=== PATIENT | male | born 1970 | race Caucasian/White ===

== ENCOUNTER → 2024-04-05 | Outpatient (CLI) | payer OTHER ==
[~2024-04-05] MED LIST: CEPH500C PO
[2024-04-05 09:43] LABS: Urine Bacteria None Seen /hpf (None Seen)
[2024-04-05 10:37] LABS: Basophils # (auto) 0.2 10 ^3/uL (0-0.2); Basophils % (auto) 1.2 % (0.0-2.0); Eosinophils # (auto) 0.3 10 ^3/uL (0-0.8); Eosinophils % (auto) 2.3 % (0.0-7.0); Hemoglobin 13.6 g/dL (13.5-17.5); Lymphocytes % (auto) 20.8 % (10.0-50.0); Mean Corpuscular Hemoglobin 33.2 pg (28.0-32.0); Mean Corpuscular Volume 97.5 fL (80.0-100.0); Monocytes # (auto) 0.5 10 ^3/uL (0-1.3); Monocytes % (auto) 3.7 % (0.0-12.0); Neutrophils # (auto) 10.4 10 ^3/uL (1.6-8.6); Platelet Count (auto) 528 10^3/uL (140-450); Red Cell Distribution Width 16.7 % (11.8-14.3); White Blood Cell 14.5 10^3/uL (4.4-10.8)
[2024-04-05 10:43] LABS: Urine Blood Negative /uL (Negative); Urine Clarity Clear (Clear); Urine Color Yellow (Yellow); Urine Protein, UAD Negative (Negative); Urine Specific Gravity 1.014 (1.001-1.035); Urine Urobilinogen Normal (Negative); Urine WBC 4 /hpf (0 - 3)
[2024-04-05 10:57] LABS: Alanine Aminotransferase 18 U/L (7-40); Albumin 4.4 g/dL (3.2-4.8); Alkaline Phosphatase 152 U/L (46-116); Anion Gap 5 (5-15); Aspartate Aminotransferase 13 U/L (13-40); BUN/Creatinine Ratio 16.8 (10.0-20.0); Bilirubin, Total 0.3 mg/dL (0.2-1.0); Blood Urea Nitrogen 17 mg/dL (9-23); Calcium 10.1 mg/dL (8.7-10.4); Carbon Dioxide 25 mmol/L (20-31); Chloride 108 mmol/L (98-107); Cholesterol 168 mg/dL (< 200); Glucose 93 mg/dL (74-106); HDL Cholesterol 37 mg/dL (40-59); LDL Cholesterol 117 mg/dL (< 100); Magnesium 2.1 mg/dL (1.6-2.6); Potassium 4.6 mmol/L (3.5-5.1); Sodium 138 mmol/L (136-145); Total Protein 7.7 g/dL (5.7-8.2); Triglycerides 153 mg/dL (< 150)
[2024-04-05 11:21] LABS: Folate (Folic Acid) > 48.00 ng/mL (>5.38)
== END | disposition home or self-care (01) ==
LOC: LAB 09:19
PROVIDERS: ATTEND Internal Medicine
DX: E55.9 Vitamin D deficiency, unspecified (principal); R73.03 Prediabetes; M86.9 Osteomyelitis, unspecified
CPT/HCPCS: 36415; 80053; 80061; 81001; 82306; 82607; 82746; 83036; 83735; 84443; 84550; 85025; 87086

== ENCOUNTER → 2024-08-05 | Outpatient (CLI) | payer OTHER ==
[2024-08-05 10:03] LABS: Basophils # (auto) 0.1 10 ^3/uL (0-0.2); Basophils % (auto) 0.9 % (0.0-2.0); Eosinophils # (auto) 0.2 10 ^3/uL (0-0.8); Eosinophils % (auto) 1.1 % (0.0-7.0); Hematocrit 49.6 % (41.0-53.0); Hemoglobin 16.7 g/dL (13.5-17.5); Lymphocytes # (auto) 2.5 10 ^3/uL (0.4-5.4); Lymphocytes % (auto) 15.8 % (10.0-50.0); Mean Corpuscular Hemoglobin 33.2 pg (28.0-32.0); Mean Corpuscular Hgb Conc. 33.8 g/dL (32.0-36.0); Mean Corpuscular Volume 98.2 fL (80.0-100.0); Monocytes # (auto) 0.8 10 ^3/uL (0-1.3); Monocytes % (auto) 4.8 % (0.0-12.0); Neutrophils # (auto) 12.5 10 ^3/uL (1.6-8.6); Neutrophils % (auto) 77.4 % (37.0-80.0); Nucleated Red Blood Cells % 0.1 %; Platelet Count (auto) 448 10^3/uL (140-450); Red Blood Cells 5.05 10^6/uL (4.5-5.90); Red Cell Distribution Width 14.9 % (11.8-14.3); White Blood Cell 16.1 10^3/uL (4.4-10.8)
[2024-08-05 10:44] LABS: Anion Gap 4 (5-15); Aspartate Aminotransferase 25 U/L (13-40); BUN/Creatinine Ratio 20.5 (10.0-20.0); Carbon Dioxide 24 mmol/L (20-31); Cholesterol 138 mg/dL (< 200); Glucose 105 mg/dL (74-106); Magnesium 2.5 mg/dL (1.6-2.6); Sodium 137 mmol/L (136-145); Triglycerides 108 mg/dL (< 150)
[2024-08-05 10:45] LABS: Alanine Aminotransferase 42 U/L (7-40); Alkaline Phosphatase 167 U/L (46-116); Bilirubin, Total 0.2 mg/dL (0.2-1.0); Blood Urea Nitrogen 24 mg/dL (9-23); Calcium 11.3 mg/dL (8.7-10.4); Chloride 109 mmol/L (98-107); LDL Cholesterol 84 mg/dL (< 100); Potassium 5.5 mmol/L (3.5-5.1); Total Protein 8.9 g/dL (5.7-8.2)
[2024-08-05 10:52] LABS: Albumin 5.4 g/dL (3.2-4.8); HDL Cholesterol 39 mg/dL (40-59)
[2024-08-05 10:56] LABS: Erythrocyte Sedimentation Rate 50 mm/hr (0-20)
[2024-08-05 11:47] LABS: Uric Acid 7.8 mg/dL (3.7-9.2)
[2024-08-05 11:49] LABS: T3 Total 0.97 ng/mL (0.60-1.81)
[2024-08-05 11:50] LABS: Free T3 2.65 pg/mL (2.3-4.2)
[2024-08-05 11:51] LABS: Free T4 (Free Thyroxine) 1.37 ng/dL (0.89-1.76)
[2024-08-05 12:16] LABS: Folate (Folic Acid) > 48.00 ng/mL (>5.38)
[2024-08-05 16:08] LABS: CRP High Sensitivity 4.62 mg/dL (<1.0)
== END | disposition home or self-care (01) ==
LOC: LAB 09:20
PROVIDERS: ATTEND Internal Medicine
DX: E61.2 Magnesium deficiency (principal); E55.9 Vitamin D deficiency, unspecified; D51.9 Vitamin B12 deficiency anemia, unspecified; E78.49 Other hyperlipidemia; E79.0 Hyperuricemia without signs of inflammatory arthritis and tophaceous disease; R94.6 Abnormal results of thyroid function studies; R82.998 Other abnormal findings in urine; R73.09 Other abnormal glucose; R68.89 Other general symptoms and signs; R82.90 Unspecified abnormal findings in urine; Z79.899 Other long term (current) drug therapy
CPT/HCPCS: 36415; 80053; 80061; 82306; 82607; 82746; 83036; 83540; 83735; 84153; 84403; 84439; 84443; 84480; 84481; 84550; 85025; 85652; 86141

== ENCOUNTER → 2024-08-22 | Outpatient (CLI) | payer OTHER ==
[2024-08-22 08:24] LABS: Basophils # (auto) 0 10 ^3/uL (0-0.2); Basophils % (auto) 0.2 % (0.0-2.0); Eosinophils # (auto) 0.3 10 ^3/uL (0-0.8); Eosinophils % (auto) 2.1 % (0.0-7.0); Hematocrit 44.1 % (41.0-53.0); Hemoglobin 14.5 g/dL (13.5-17.5); Lymphocytes # (auto) 2.7 10 ^3/uL (0.4-5.4); Lymphocytes % (auto) 20.7 % (10.0-50.0); Mean Corpuscular Hemoglobin 32.1 pg (28.0-32.0); Mean Corpuscular Hgb Conc. 32.8 g/dL (32.0-36.0); Mean Corpuscular Volume 98.1 fL (80.0-100.0); Monocytes # (auto) 0.4 10 ^3/uL (0-1.3); Monocytes % (auto) 2.7 % (0.0-12.0); Neutrophils # (auto) 9.9 10 ^3/uL (1.6-8.6); Neutrophils % (auto) 74.3 % (37.0-80.0); Nucleated Red Blood Cells % 0.1 %; Platelet Count (auto) 523 10^3/uL (140-450); Red Cell Distribution Width 14.5 % (11.8-14.3); White Blood Cell 13.3 10^3/uL (4.4-10.8)
[2024-08-22 08:39] LABS: Anion Gap 9 (5-15); Carbon Dioxide 24 mmol/L (20-31); Sodium 141 mmol/L (136-145)
[2024-08-22 08:40] LABS: Calcium 9.9 mg/dL (8.7-10.4)
[2024-08-22 08:45] LABS: BUN/Creatinine Ratio 19.5 (10.0-20.0); Blood Urea Nitrogen 17 mg/dL (9-23)
[2024-08-22 08:46] LABS: CRP High Sensitivity 0.72 mg/dL (<1.0)
[2024-08-22 08:54] LABS: Chloride 108 mmol/L (98-107); Glucose 107 mg/dL (74-106)
[2024-08-22 08:58] LABS: Erythrocyte Sedimentation Rate 43 mm/hr (0-20)
== END | disposition home or self-care (01) ==
LOC: LAB 07:07
PROVIDERS: ATTEND Internal Medicine
DX: Z01.89 Encounter for other specified special examinations (principal); A49.9 Bacterial infection, unspecified; D45 Polycythemia vera; E78.00 Pure hypercholesterolemia, unspecified; R79.82 Elevated C-reactive protein (CRP); R70.0 Elevated erythrocyte sedimentation rate
CPT/HCPCS: 36415; 80048; 85025; 85652; 86141; 87040

== ENCOUNTER 2024-12-26 08:07 | Outpatient (CLI) | payer OTHER ==
[2024-12-26 08:30] LABS: Hematocrit 45.1 % (41.0-53.0); Hemoglobin 15.0 g/dL (13.5-17.5); Mean Corpuscular Hemoglobin 32.7 pg (28.0-32.0); Mean Corpuscular Volume 98.4 fL (80.0-100.0); Nucleated Red Blood Cells % 0.0 %
[2024-12-26 08:55] LABS: Urine Protein, UAD Negative (Negative)
[2024-12-26 08:56] LABS: Alanine Aminotransferase 21 U/L (7-40); Albumin 4.7 g/dL (3.2-4.8); Alkaline Phosphatase 132 U/L (46-116); Anion Gap 6 (5-15); BUN/Creatinine Ratio 18.1 (10.0-20.0); Bilirubin, Total < 0.2 mg/dL (0.2-1.0); Blood Urea Nitrogen 19 mg/dL (9-23); Calcium 10.5 mg/dL (8.7-10.4); Carbon Dioxide 24 mmol/L (20-31); Chloride 112 mmol/L (98-107); Cholesterol 107 mg/dL (< 200); Glucose 100 mg/dL (74-106); HDL Cholesterol 30 mg/dL (40-59); Potassium 4.7 mmol/L (3.5-5.1); Sodium 142 mmol/L (136-145); Total Protein 7.8 g/dL (5.7-8.2); Triglycerides 154 mg/dL (< 150)
[2024-12-26 11:14] LABS: Uric Acid 6.2 mg/dL (3.7-9.2)
== END 2024-12-26 17:00 | disposition home or self-care (01) ==
LOC: LAB 08:07
PROVIDERS: ATTEND Internal Medicine
DX: E78.49 Other hyperlipidemia (principal); R73.09 Other abnormal glucose; R68.89 Other general symptoms and signs; E61.2 Magnesium deficiency; R94.6 Abnormal results of thyroid function studies; E79.0 Hyperuricemia without signs of inflammatory arthritis and tophaceous disease; R82.998 Other abnormal findings in urine; E55.9 Vitamin D deficiency, unspecified; R82.90 Unspecified abnormal findings in urine; R82.79 Other abnormal findings on microbiological examination of urine; D51.9 Vitamin B12 deficiency anemia, unspecified
CPT/HCPCS: 36415; 80053; 80061; 81003; 82306; 82607; 83036; 84443; 84550; 85025; 87086

== ENCOUNTER 2025-02-13 01:00 | Inpatient (IN) | payer OTHER ==
[~2025-02-13] VITALS: Ht 177.8 cm; Wt 68.2 kg
[2025-02-13] VITALS (118 sets, daily range): BP systolic 39–141; BP diastolic 18–106; PULSE 76–114; RESP 12–31; TEMP 94.1–99.6; O2SAT 0–100
--- NOTE | 2025-02-13 01:27 | ED.PDOC ---
CPR-HPI HPI Comments HPI: 54 year old male presents to the emergency department via EMS with a chief complaint of cardiac arrest. Per EMS, initial 911 call was due to patient experiencing rectal bleeding and diarrhea for the past 2 days. Upon EMS arrival, patient was awake, on the ground, altered, unable to answer questions, responding to stimuli. In route to ED, patient was bradycardic, lost pulses, CPR began. He has a IO on RLE, 2 rounds of epinephrine was given prior to ED arrival. Last seen normal was about 1 hour prior to 911 call. Upon ED arrival, it was noted EMT showing very poor CPR and no bag valve mask ventilation happening upon ED arrival, Oral adjunct in place. CPR continued under our care, patient was intubated with 7.5 RTT tube @ 26 cm, TXA and 2 units PRBC were ordered immediately, given to patient. There was ROSC at 01:00. Initial Vitals BP: HR: RR: O2: Temp: 97.8 F Past Medical History: per EMS denies Past Surgical History: per EMS denies Social History: Denies ETOH, smoking, and drug use. Medications: Gabapentin, Percocet Allergies: Sulfa, Vancomycin, Cipro Patient was evaluated immediately upon arrival. No corneal reflex. Pupils were nonreactive and dilated. No gag reflex during the intubation. HPI: Poor Historian. Past Medical History: Past Surgical History: REVIEW OF SYSTEMS: Unable to obtain given the patient altered level of consciousness cardiac arrest CPR in progress. PHYSICAL EXAM: General: -unresponsive. Head: normocephalic, atraumatic. Neck: supple, trachea is midline, no swelling. Throat: Dry oral mucosa. No gag reflex during intubation. Eyes:, no erythema, no purulent discharge, no proptosis, no icterus. Heart: Asystole Lungs: CPR in progress. Abdomen: non tender to palpation, non distended, soft, no guarding, no rebound, + bowel sounds. Neuro: GCS 3 Skin: no petechia, no purpura, no cyanosis, noticeably-pale, slightly jaundice. Lower extremities: --no - Pitting edema no deformity, no focal swelling, no calf TTP. 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 Noted blood in the rectum when we checked a rectal temperature probe. Face: no apparent facial droop. ED COURSE: DISCLAIMER: This medical document was created using an electronic medical record system with voice recognition software and computerized dictation system. Although this document has been carefully reviewed, there might still be some phonetic and typographical errors. Occasional wrong-word or "sound-alike" substitutions may have occurred due to the inherent limitations of voice recognition software. These areas are purely typographical due to imperfections of the software programs and do not reflect any compromise in the patient's medical care. Please read the chart carefully and recognize, using context, where these substitutions have occurred. Chief Complaint: CPR Time Seen by MD: 01:00 Primary Care Provider: KAMALA Arboleda Notes: Medications, Allergies Allergies: Coded Allergies: Ciprofloxacin (Verified Allergy, Intermediate, 04/24/10) Vancomycin (Verified Allergy, Intermediate, 04/24/10) Uncoded Allergies: SULFA (Allergy, Unknown, 10/25/14) Home Meds Reported Medications Cephalexin Monohydrate (Cephalexin) 500 Mg Cap, 500 MG PO BID, #60 10/25/14 Information Source: Emergency Med Personnel Mode of Arrival: EMS Timing: Minutes Onset: At rest Available Hx: GI Bleeding Inital rhythm: Bradycardia Treatment: CPR, Epinephrine Response: No response Associated signs and symptoms: GI Bleeding Past Medical History PAST MEDICAL HISTORY: Denies Surgical History: Denies all surgeries Family History Family History: Unknown Social History Smoker: Non-Smoker Alcohol: Denies ETOH Use Drugs: Denies Drug Use Lives In: Home Was a procedure done? 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 Indication: Inability to obtain IV Room prepared for procedure: Yes Medical Oncology Physician performed hand hygien: Yes Maximal sterile barrier precau: Mask/Eye shield, Sterile gown, Cap, Sterlie gloves, Large sterlie drape Skin Preparation: Chlorhexidine gluconate, Providine iodine, Alcohol Skin preparation completely dr: Yes Insertion site: Right, Femoral Central line catheter type: [id number]-qal dialysis Number of lumens: 3 Antiseptic ointment applied to: Yes Post Assessment: Chest X-Ray, Proper placement Informed consent obtained: Yes Risks/benefits/alt described: Yes Intubation Indication: Respiratory Insufficiency Prep: Preoxygenation Intubation Approach: Orotracheal (7.5) Intubation size: cm (26) X-Ray, Labs, Meds, VS Vital Signs Date Time Temp Pulse Resp B/P (MAP) Pulse Ox O2 Delivery O2 Flow Rate FiO2 02/13/25 01:45 80 12 64/ 100 100 02/13/25 01:45 80 12 64/ (42) 100 100 02/13/25 01:14 116 02/13/25 01:10 97.8 0 0 0/0 0 97.8 Lab Test 02/13/25 01:10 Range/Units White Blood Count 19.0 H 4.4-10.8 10^3/uL Red Blood Count 1.21 L 4.5-5.90 10^6/uL Hemoglobin 3.9 *L 13.5-17.5 g/dL Hematocrit 15.5 L 41.0-53.0 % Mean Corpuscular Volume 127.9 H 80.0-100.0 fL Mean Corpuscular Hemoglobin 32.4 H 28.0-32.0 pg Mean Corpuscular Hemoglobin Concent 25.3 L 32.0-36.0 g/dL Red Cell Distribution Width 15.7 H 11.8-14.3 % Platelet Count 315 140-450 10^3/uL Mean Platelet Volume 8.9 6.9-10.8 fL Neutrophils (%) (Auto) 37.0-80.0 % Lymphocytes (%) (Auto) 10.0-50.0 % Monocytes (%) (Auto) 0.0-12.0 % Basophils (%) (Auto) 0.0-2.0 % Neutrophils # (Auto) 1.6-8.6 10 ^3/uL Lymphocytes # (Auto) 0.4-5.4 10 ^3/uL Monocytes # (Auto) 0-1.3 10 ^3/uL Differential Total Cells Counted 100.0 100 Neutrophils % (Manual) 28 L 37.0-80.0 Band Neutrophils % (Manual) 2 Lymphocytes % (Manual) 67 H 10.0-50.0 Monocytes % (Manual) 2 0-12 Eosinophils % (Manual) 0 0-7 Basophils % (Manual) 0 0.0-2.0 Metamyelocytes % (manual) 0 Myelocytes % (Manual) 1 Promyelocytes % (Manual) 0 Blast Cells % (Manual) 0 Nucleated Red Blood Cells 1.0 % Reactive Lymphocytes 0 Platelet Estimate Adequate Macrocytosis Marked Prothrombin Time 12.6 H 9.3-11.8 sec Prothrombin Time INR 1.21 H 0.9-1.15 Activated Partial Thromboplast Time 109.0 *H 24.5-34.5 SEC Sodium Level 145 136-145 mmol/L Potassium Level 7.0 *H 3.5-5.1 mmol/L Chloride Level 115 H 98-107 mmol/L Carbon Dioxide Level < 10 *L 20-31 mmol/L Anion Gap 20.49420 H 5-15 Blood Urea Nitrogen 36 H 9-23 mg/dL Creatinine 1.46 H 0.700-1.30 mg/dL Glomerular Filtration Rate Calc 57 >90 mL/min BUN/Creatinine Ratio 24.7 H 10.0-20.0 Serum Glucose 356 H 74-106 mg/dL Lactic Acid Level 22.8 *H 0.4-2.0 mmol/L Calcium Level 9.5 8.7-10.4 mg/dL Total Bilirubin < 0.2 L 0.2-1.0 mg/dL Aspartate Amino Transferase (AST) 488 H 13-40 U/L Alanine Aminotransferase (ALT) 360 H 7-40 U/L Alkaline Phosphatase 88 46-116 U/L Troponin I High Sensitivity 3 L </=54 ng/L Total Protein 4.6 L 5.7-8.2 g/dL Albumin 2.6 L 3.2-4.8 g/dL Current Medications Medications (Trade) Dose Ordered Sig/Noah Route Start Time Stop Time Status Last Admin Sodium Chloride 1,000 ml @ 1,000 mls/hr Q1H ONCE IV 02/13/25 01:45 02/13/25 02:44 DC 02/13/25 03:20 Metronidazole 100 ml @ 100 mls/hr ONCE ONCE IV 02/13/25 01:45 02/13/25 02:44 DC 02/13/25 03:30 Pantoprazole Sodium (Protonix) 80 mg ONCE ONCE IV 02/13/25 01:45 02/13/25 01:46 DC 02/13/25 03:30 Sodium Chloride 1,000 ml @ 120 mls/hr Q8H20M IV 02/13/25 02:15 02/13/25 03:[address] [place] - [address] Ph: [phone] DIAGNOSTIC IMAGING Diagnostic Imaging Report : [id number] Signed 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 Lungs: No focal consolidation. Mild pulmonary vascular congestion. Question interstitial edema. Pleura: No effusion. No pneumothorax. Cardiomediastinal contours: Unremarkable Bones: No acute osseous abnormality. IMPRESSION: 1. Endotracheal and enteric tubes are in appropriate position. 2. Mild pulmonary vascular congestion and interstitial edema. 3. No focal consolidations. ATED BY: KAYA HWANG MD DICTATED DATE/TIME: 02/13/25240 SIGNED BY: KAYA HWANG MD SIGNED DATE/TIME: 02/13/25240 CC: Time of 1ST Reevaluation: 01:30 Reevaluation 1ST: Unchanged Patient Education/Counseling: Other Family Education/Counseling: No Family Present Departure 1 Departure Time of Disposition: 02:18 Impression: Primary Impression: Cardiac arrest Additional Impressions: Rectal bleed Severe anemia Hyperkalemia Elevated LFTs Hypoalbuminemia Disposition: ADMITTED INPATIENT Admit to: ICU Condition: Critical Critical Care Note Critical Care Time?: No I personally scribed for SHANELL STEEN DO ([email or web address]) on 02/13/25 at 01:27. Electronically submitted by Pratibha Hoffman ([email or web address]). I personally scribed for SHANELL STEEN DO ([email or web address]) on 02/13/25 at 01:38. Electronically submitted by Pratibha Hoffman ([email or web address]). I personally scribed for [facility] DO ([facility] on 02/13/25 at 01:40. Electronically submitted by Pratibha Hoffman ([email or web address]). I personally scribed for SHANELL STEEN DO ([facility]) on 02/13/25 at 02:38. Electronically submitted by Pratibha Hoffman ([email or web address]). I personally scribed for SHANELL STEEN DO ([facility]) on 02/13/25 at 03:36. Electronically submitted by Pratibah Hoffman ([email or web address]). SHANELL STEEN DO Feb 13, 2025 01:27
[2025-02-13 01:49] LABS: Hematocrit 15.5 % (41.0-53.0); Mean Corpuscular Hemoglobin 32.4 pg (28.0-32.0); Mean Corpuscular Volume 127.9 fL (80.0-100.0)
[2025-02-13 01:53] LABS: Hemoglobin 3.9 g/dL (13.5-17.5)
[2025-02-13 01:55] LABS: Alkaline Phosphatase 88 U/L (46-116); Anion Gap 20.00001 (5-15); BUN/Creatinine Ratio 24.7 (10.0-20.0); Calcium 9.5 mg/dL (8.7-10.4)
[2025-02-13 01:56] LABS: Alanine Aminotransferase 360 U/L (7-40); Albumin 2.6 g/dL (3.2-4.8); Bilirubin, Total < 0.2 mg/dL (0.2-1.0); Blood Urea Nitrogen 36 mg/dL (9-23); Chloride 115 mmol/L (98-107); Glucose 356 mg/dL (74-106); Sodium 145 mmol/L (136-145); Total Protein 4.6 g/dL (5.7-8.2)
[2025-02-13] MEDS: NOREPINEPHRINE 8 MG/250ML KIT 250 ML IV SCH (02:00)
[2025-02-13] MEDS: MIDAZOLAM DRIP 50 mg/50mL 50 ML IV SCH (02:00)
[2025-02-13] MEDS ORDERED: MORPHINE SULFATE INJ 2 MG/ml SYRG IV PRN (02:15)
[2025-02-13] MEDS ORDERED: ONDANSETRON HCL 4 MG/2 ML VIAL IV PRN (02:15)
[2025-02-13] MEDS ORDERED: NITROGLYCERIN 0.4 MG SL TAB SL PRN (02:15)
[2025-02-13] MEDS ORDERED: DEXTROSE (50%) 50ML SYRG IV PRN (02:15)
[2025-02-13 02:20] LABS: Carbon Dioxide < 10 mmol/L (20-31); Potassium 7.0 mmol/L (3.5-5.1)
--- NOTE | 2025-02-13 02:20 | RESUS ---
CODE BLUE ASSESSSMENT History of Events History of Events: 54 year old male presents to the emergency department via EMS with a chief complaint of cardiac arrest. Per EMS, initial 911 call was due to patient experiencing rectal bleeding and diarrhea for the past 2 days. Upon EMS arrival, patient was awake, on the ground, altered, unable to answer questions, responding to stimuli. In route to ED, patient was bradycardic, lost pulses, CPR began. He has a IO on RLE, 2 rounds of epinephrine was given prior to ED arrival. Last seen normal was about 1 hour prior to 911 call. Initial Information Date: Feb 13, 2025 Time: 01:00 Location of Arrest: In Field CPR started by whom: EMS Type of arrest: Cardiac, Respiratory, Adult Spontaneous Respirations: No Monitoring: Pulse Oximetry, Telemetry Crash Cart Opened and Supplies: Yes Airway Ventilation Breathing at Onset: Assisted Oxygen Delivery Method: Ambu-Bag Artificial Ventilation: Bag/Endo tube Intubation Size: 7.5 cuffed Intubated by: Dr. Lindo Intubated orally: Yes Tube secured at: 26 (@lip) CO2 indicator used: Yes Confirmation: Auscultation Suctioning (Oral/Tracheal): Yes Circulation Circulation #1: Time: 01:00 Circulation Comment: Arrival through ER doors w/ poor quality CPR Circulation #2: Time: 01:01 Pulse Rate (adult): 0 Blood Pressure Systolic: 0 Blood Pressure Diastolic: 0 Circulation Comment: Pt transfered to [facility] CPR continued Circulation #3: Time: 01:03 Pulse Rate (adult): 0 Blood Pressure Systolic: 0 Blood Pressure Diastolic: 0 Temperature (Fahrenheit): 97.8 Circulation Comment: Asystole Circulation #4: Time: 01:05 Pulse Rate (adult): 0 Blood Pressure Systolic: 0 Blood Pressure Diastolic: 0 Circulation Comment: Asystole Circulation #5: Time: 01:07 Pulse Rate (adult): 0 Blood Pressure Systolic: 0 Blood Pressure Diastolic: 0 Circulation Comment: Pulse check Circulation #6: Time: 01:08 Pulse Rate (adult): 187 Blood Pressure Systolic: 103 Blood Pressure Diastolic: 47 Circulation Comment: ROSC Procedure - IV Procedure - IV : IV Side: Right IV Location: Hand IV Catheter Type: Peripheral IV IV Gauge: 20 IV Line Care: Saline Flush Procedure - Intraosseous Site of Intraosseous: Tibia jassi-medial Intraosseous inserted by: EMS Right IO Medications & Response Medications and Responses #1: Medication Time: 01:02 ADULT Medications Given ADULT: Epinephrine 1 mg Route of Administration: IO Medication Comment: Also started 1L bolus open Heart Rate: 0 EKG Rhythm: Asystole Blood Pressure Systolic: 0 Blood Pressure Diastolic: 0 Medications and Responses #2: Medication Time: 01:05 ADULT Medications Given ADULT: Epinephrine 1 mg Route of Administration: IO Heart Rate: 0 EKG Rhythm: Asystole Blood Pressure Systolic: 0 Blood Pressure Diastolic: 0 EKG Rhythm: Asystole Medications and Responses #3: Medication Time: 01:07 Route of Administration: IV Medication Comment: Tranexamic acid 1000mg via IV EKG Rhythm: Asystole Medications and Responses #4: Medication Time: 01:08 ADULT Medications Given ADULT: Epinephrine 1 mg, Sodium Bacarbinate 50 meq Medication Comment: Given prior to ROSC Procedure - Central Venous Cat Central venous catheter site: Rt Femoral Comment: Dr. Lindo inserted sp ROSC Right Femoral line Nurses Notes [place] Coma Scale Eye Opening: None (1) Daniel Coma Scale Verbal: None (1) Daniel Coma Scale Motor: None (1) Pupil Reaction: Non Reactive Bedside Blood Glucose: 168 EKG Rhythm: Sinus Tachycardia Nurses Notes - Comment: Levo started at 10 mcg after code, blood presure systolic in 60's 2 units of blood ordered during code. Started after ROSC. Time Code Ended Post Arrest Status: Unconscious, Ventilated Outcome of code: Successful Code Team Present: Juana Arroyo RT, Gabriel HURTADO mold filler and drainer, Yolie RN, Fernando RN, Natalie EMT, Stoney RNS Post Resuscitation Neurologica Pupil Size: 5 ROSC Time of ROSC: 01:08 Pt Meets Criteria for Therapeu: No Therapeutic Hyperthermia Start: No JAYJAY MUHAMMAD Feb 13, 2025 02:20
[2025-02-13 02:22] LABS: INR 1.21 (0.9-1.15); Prothrombin Time 12.6 sec (9.3-11.8)
[2025-02-13 02:23] LABS: Lactic Acid w/Reflex 22.8 mmol/L (0.4-2.0)
--- NOTE | 2025-02-13 02:28 | DVHHP2 ---
Admitting Diagnosis: Cardiac arrest History of Present Illness 54-year-old male came in full cardiac arrest from home. According to the emergency room patient was not getting good ventilation in the ambulance and patient was intubated in the emergency room. Patient had estimated downtime of approximately 1 hour. Patient had minimal medical history. According to family he had a remote history of EtOH in the past but has not been drinking for many years. 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 Patient presented status postcardiac arrest. Patient was intubated in the emergency room. Patient was thought to be sepsis with septic shock. Patient also had acute multi organ failure. Patient CT imaging shows cerebral edema. Patient's pupils were blown and not reactive to light. Patient will be admitted for further workup with all specialists to help with multi organ failure and cardiac and respiratory failure. Allergies: Coded Allergies: Ciprofloxacin (Verified Allergy, Intermediate, 04/24/10) Vancomycin (Verified Allergy, Intermediate, 04/24/10) Uncoded Allergies: SULFA (Allergy, Unknown, 10/25/14) Home Meds Reported Medications Cephalexin Monohydrate (Cephalexin) 500 Mg Cap, 500 MG PO BID, #60 10/25/14 Current Medications Current Medications Medications (Trade) Dose Ordered Sig/Noah Route PRN Reason Start Time Stop Time Status Last Admin Midazolam HCl 50 ml @ 1 mls/hr Q24H IV 02/13/25 02:30 02/13/25 02:00 Norepinephrine Bitartrate 250 ml @ 3.75 mls/hr Q24H IV 02/13/25 02:30 02/13/25 18:58 Sodium Chloride 1,000 ml @ 120 mls/hr Q8H20M IV 02/13/25 02:15 02/13/25 18:25 Ondansetron HCl (Zofran) 4 mg Q4HP PRN IV NAUSEA / VOMITING 02/13/25 02:15 Nitroglycerin (Ntrostat Sublingual) 0.4 mg Q5MINP PRN SL FOR CHEST PAIN 02/13/25 02:15 Morphine Sulfate 2 mg Q30M PRN IV FOR CHEST PAIN 02/13/25 02:15 Diagnostic Test (Pha) (Accu-Chek Comfort Curve T) 1 strip IQ4HR 02/13/25 04:00 02/13/25 20:00 Insulin Human Regular (InsuLIN R) IQ4HR SC 02/13/25 04:00 02/13/25 20:25 Dextrose 50 ml UD PRN IV Blood Sugar LESS THAN 60 02/13/25 02:15 Pantoprazole Sodium (Protonix) 40 mg BID IV 02/13/25 10:00 02/13/25 10:51 DC 02/13/25 10:15 Phenylephrine HCl 250 ml @ 30 mls/hr Q8H20M IV 02/13/25 05:15 02/13/25 20:25 Vasopressin 20 units/Sodium Chloride 100 ml @ 9 mls/hr Q11H7M IV 02/13/25 05:15 02/13/25 20:03 DC 02/13/25 15:10 Piperacillin Sod/ Tazobactam Sod 100 ml @ 25 mls/hr Q8HR IV 02/13/25 06:00 02/13/25 14:09 Doxycycline Hyclate 100 ml @ 50 mls/hr Q12H IV 02/13/25 05:15 02/13/25 17:08 Albumin Human 50 ml @ 100 mls/hr Q8H IV 02/13/25 05:15 02/13/25 21:44 02/13/25 12:49 Sodium Chloride 1,000 ml @ 100 mls/hr Q10H IV 02/13/25 05:15 02/13/25 05:15 Epinephrine HCl 250 ml @ 7.5 mls/hr Q24H IV 02/13/25 07:15 02/13/25 14:59 Dopamine HCl/ Dextrose 250 ml @ 12.788 mls/ hr [id number] IV 02/13/25 09:30 02/13/25 19:22 Sodium Bicarbonate 150 ml/Dextrose 1,150 ml @ 100 mls/hr [id number] IV 02/13/25 10:45 02/13/25 10:51 DC Pantoprazole Sodium 50 ml @ 10 mls/hr Q5H IV 02/13/25 10:45 02/13/25 20:51 Octreotide Acetate 500 mcg/ Sodium Chloride 100 ml @ 10 mls/hr Q10H IV 02/13/25 10:45 02/13/25 20:51 Sodium Bicarbonate 150 ml/Dextrose 1,150 ml @ 150 mls/hr Q7H40M IV 02/13/25 10:45 02/13/25 20:30 Vasopressin 40 units/Dextrose 200 ml @ 60 mls/hr Q3H20M IV 02/13/25 20:00 02/13/25 20:04 DC Vasopressin 100 units/Dextrose 500 ml @ 60 mls/hr Q8H20M IV 02/13/25 20:15 02/13/25 20:15 Calcium Gluconate/ Sodium Chloride 50 ml @ 100 mls/hr Q30M IV 02/13/25 21:00 02/13/25 21:59 02/13/25 21:06 Review of Systems intubated Vital Signs Vital Signs Date Time Temp Pulse Resp B/P (MAP) Pulse Ox O2 Delivery O2 Flow Rate FiO2 02/13/25 21:00 99.5 106 30 98/79 (85) 99.5 02/13/25 20:00 47 Mechanical Ventilator+ 40 40 Physical Exam General Appearance: intubated HEENT: normal external inspect of ears, no icterus, no nasal drainage Neck: no carotid bruit, no jugular venous distention (JVD), no lymphadenopathy Chest: normal thorax Respiratory: intubated,clear to auscultation, normal air movement Cardiovascular: regular rate and rhythm, no diastolic murmur, no jugular venous distention (JVD), no rub, no systolic murmur Abdominal: soft, no hepatomegaly, no mass, no splenomegaly, no tenderness Musculoskeletal: no joint tenderness, no swelling Extremities: normal pulses, no calf tenderness, no clubbing, no cyanosis, no edema Skin: no bruising, no jaundice, no rash Neurological: intubated SEPSIS Sepsis Screen Date sepsis recognized/suspect: Feb 13, 2025 Time Sepsis recognized/suspect: 0100 Recent Procedure: No On Antibiotic Therapy: No Respiratory Rate >20: No Heart Rate >90: No Temp<36 C (96.8 F) or >38.3 C: No SBP <90 or MAP <65 mmHG: No New Acute Mental Status Change: No Is the patient on CPAP, BIPAP,: No Physician Orders Vent Ip Init (02/13/25 01:15) Abg W/ Co-Ox (02/13/25 02:00) Respiratory Culture W/ Gs (02/13/25 01:15) Type And Screen (02/13/25 01:22) Electrocardigram (02/13/25 01:34) Ct Ab Pel Wo Con-No Oral Or Iv (02/13/25 01:37) Head Without Contrast (02/13/25 01:37) Chest Portable (02/13/25 01:37) Midazolam Drip 50 Mg/50ml (Versed Drip 5 (02/13/25 02:30) Grad Intern (02/13/25 ) Norepinephrine 8 Mg/250ml Kit (Levophed) (02/13/25 02:30) Admit (02/13/25 02:15) Sodium Chloride 0.9% (02/13/25 02:15) Oxygen Per Hour (02/13/25 02:15) Ondansetron Hcl (Zofran) (02/13/25 02:15) Complete Blood Count (02/14/25 04:00) Comprehensive Metabolic Panel (02/14/25 04:00) Npo (Nothing By Mouth) Diet (02/13/25 Breakfast) Condition: Critical (02/13/25 02:15) Sequential Compression Device (02/13/25 ) *Consult Dr. Son Hopson (02/13/25 02:15) * [facility] Quality Control Engineering Technician (02/13/25 02:15) *Consult / (02/13/25 02:15) Nitroglycerin Sublingual (Ntrostat Subli (02/13/25 02:15) Morphine Sulfate Injection (02/13/25 02:15) Stat Ekg For Chest Pain (02/13/25 02:15) Notify Md Of Changes From Base (02/13/25 02:15) Stucco Mason For 24 Hours (02/13/25 02:15) Emergency Dysrhythmia Protocol (02/13/25 02:15) Rhythm Strips Once Every Shift (02/13/25 02:15) Oxygen By Nasal Cannula (02/13/25 02:15) Glucose Blood (Accu-Chek Comfort Curve T (02/13/25 04:00) Insulin R (Human) (Insulin R) (02/13/25 04:00) Dextrose 50% Syringe (02/13/25 02:15) Abg W/ Co-Ox (02/13/25 04:05) Communication Order (02/13/25 01:00) Ventilator Orders (02/13/25 04:30) Abg W/ Co-Ox (02/13/25 05:10) Phenylephrine Iv (Phenylephrine/Ns) (02/13/25 05:15) Electrocardigram (02/13/25 05:12) Piperacillin-Tazob 3.375gm (Zosyn 3.375g (02/13/25 06:00) Doxycycline 100mg/100ml (Vibramycin) (02/13/25 05:15) Albumin 25% (Albutein) (02/13/25 05:15) Sodium Chloride 0.9% (02/13/25 05:15) Urinalysis (02/13/25 05:20) Urine Bacterial Culture (02/13/25 05:20) Blood Culture (02/13/25 05:20) Respiratory Culture W/ Gs (02/13/25 05:20) Drug Screen (02/13/25 05:20) Acute Hepatitis Panel (02/13/25 05:25) Epinephrine Hcl (02/13/25 07:15) Troponin-I Hs (02/13/25 09:14) Dopamine 1600mcg/Ml D5w (02/13/25 09:30) *Consult Dr. Sonia Maza (02/13/25 09:55) * Infectious [facility]- Dr. Mariano Garcia (02/13/25 09:58) *Dr. [facility] (02/13/25 09:58) Pantoprazole 40mg/50ml Ns Ae (Protonix) (02/13/25 10:45) Sodium Chl 0.9% (So... W/Octreotide Acet (02/13/25 10:45) D5w 5% (Dextrose 5%) W/Sodium Bicarb 50m (02/13/25 10:45) Blood Alcohol (02/13/25 11:03) Drug Profile Blood (6 Drugs) (02/13/25 11:03) Ventilator Orders (02/13/25 10:45) Mrsa Screen (02/13/25 05:15) Packedcells -Active Bleeding (02/13/25 13:28) Ammonia (02/13/25 13:30) Abg W/ Co-Ox (02/13/25 14:13) Code Status (02/13/25 14:48) Basic Metabolic Panel (02/13/25 17:56) Hemoglobin & Hematocrit (02/13/25 21:30) D5w 5% (Dextrose 5%) W/Vasopressin (02/13/25 20:15) Calcium Gluc 1,000mg/50ml-Ns (02/13/25 21:00) Vital Signs Date Time Temp Pulse Resp B/P (MAP) Pulse Ox O2 Delivery O2 Flow Rate FiO2 02/13/25 21:00 99.5 106 30 98/79 (85) 99.5 02/13/25 20:45 105 30 112/88 (96) 02/13/25 20:30 101 30 141/106 (118) 02/13/25 20:25 139/105 02/13/25 20:15 103 30 71/43 (52) 02/13/25 20:15 69/41 02/13/25 20:00 98 30 47 Mechanical Ventilator+ 40 40 02/13/25 20:00 30 47 Mechanical Ventilator+ 40 40 02/13/25 20:00 100 02/13/25 20:00 94 30 95/96 (96) 93 100 02/13/25 20:00 98 02/13/25 20:00 102 30 82/51 (61) 02/13/25 19:45 100 30 90/58 (69) 02/13/25 19:42 96.2 98 30 90/59 96.2 02/13/25 19:30 99 30 92/61 (71) 02/13/25 19:22 90/60 02/13/25 19:15 98 30 90/59 (69) 02/13/25 19:00 97 30 88/57 (67) 02/13/25 18:58 88/56 02/13/25 18:53 84/53 02/13/25 18:45 97 30 85/54 (64) 02/13/25 18:32 98.0 97 30 83/53 98.0 02/13/25 18:30 96 30 82/53 (63) 02/13/25 18:17 97.0 96 30 92/53 97.0 02/13/25 18:15 95 30 92/55 (67) 02/13/25 18:08 97.9 95 30 93/54 97.9 02/13/25 18:00 30 100 Mechanical Ventilator+ 100 100 02/13/25 18:00 98 02/13/25 18:00 94 30 95/57 (70) 02/13/25 18:00 100 02/13/25 17:56 94 30 95/96 (96) 100 02/13/25 17:54 94 30 95/65 (75) 93 100 02/13/25 17:45 93 30 99/60 (73) 86 02/13/25 17:30 91 30 70/42 (51) 93 100/59 (73) 02/13/25 17:15 91 30 70/45 (53) 97/56 (70) 02/13/25 17:00 90 30 89/48 (62) 02/13/25 16:59 97.9 90 30 91/64 97.9 02/13/25 16:52 89/48 02/13/25 16:45 90 30 91/49 (63) 87/47 (60) 02/13/25 16:44 97.7 90 30 86/45 97.7 02/13/25 16:30 89 30 99/62 (74) 87 89/49 (62) 02/13/25 16:21 96.8 88 30 92/52 96.8 02/13/25 16:15 87 30 65/39 (48) 100 92/51 (65) 02/13/25 16:00 86 02/13/25 16:00 100 02/13/25 16:00 97.0 86 31 94/49 (64) 86 97.0 93/53 (66) 02/13/25 16:00 30 100 Mechanical Ventilator+ 100 100 02/13/25 15:54 86 30 94/53 (67) 100 02/13/25 15:45 86 30 94/52 (66) 02/13/25 15:30 86 30 94/51 (65) 02/13/25 15:15 86 30 90/52 (65) 90/48 (62) 02/13/25 15:10 96.4 86 30 93/64 96.4 02/13/25 15:10 87/58 02/13/25 15:00 88 30 84/41 (55) 02/13/25 15:00 82/54 02/13/25 14:59 82/54 8/21/25 14:59 82/54 02/13/25 14:47 98.2 87 30 85/42 98.2 02/13/25 14:45 87 30 86/52 (63) 82/41 (55) 02/13/25 14:40 81/39 02/13/25 14:30 89 30 59/29 (39) 02/13/25 14:30 97.6 87 30 76/36 97.6 02/13/25 14:15 91 30 56/28 (37) 02/13/25 14:15 97.6 91 30 53/26 97.6 02/13/25 14:10 91 30 57/29 (38) 100 02/13/25 14:00 91 30 58/29 (39) 02/13/25 14:00 100 02/13/25 14:00 30 100 Mechanical Ventilator+ 100 100 02/13/25 14:00 91 02/13/25 13:55 96.5 91 30 59/29 96.5 02/13/25 13:45 91 30 60/31 (41) 02/13/25 13:30 91 30 61/31 (41) 02/13/25 13:15 91 30 63/34 (44) 58/29 (39) 02/13/25 13:00 93 30 50/25 (33) 87 02/13/25 12:55 94 30 47/24 (32) 02/13/25 12:53 97.0 93 30 59/35 97.0 02/13/25 12:50 95 30 46/23 (31) 88 02/13/25 12:48 54/32 02/13/25 12:45 96 30 39/24 (29) 02/13/25 12:40 97 30 40/20 (27) 02/13/25 12:38 98.3 96 30 39/19 98.3 02/13/25 12:35 97 30 39/19 (26) 02/13/25 12:30 97 30 39/18 (25) 02/13/25 12:25 99 30 40/20 (27) 02/13/25 12:20 100 30 39/19 (26) 02/13/25 12:15 100 30 40/19 (26) 02/13/25 12:12 100 30 40/19 (26) 100 02/13/25 12:10 101 30 66/27 (40) 41/19 (26) 02/13/25 12:05 102 19 43/21 (28) 02/13/25 12:00 102 30 43/21 (28) 02/13/25 12:00 30 96 Mechanical Ventilator+ 100 100 02/13/25 12:00 100 02/13/25 12:00 106 02/13/25 11:55 103 30 43/21 (28) 02/13/25 11:50 104 30 44/22 (29) 02/13/25 11:45 105 30 46/23 (31) 02/13/25 11:40 105 23 50/24 (33) 02/13/25 11:35 106 30 51/25 (34) 02/13/25 11:33 64/32 02/13/25 11:30 106 30 55/26 (36) 02/13/25 11:25 107 30 71/32 (45) 67/36 (46) 02/13/25 11:20 108 27 71/39 (50) 02/13/25 11:05 109 30 100 02/13/25 10:50 108 30 100 02/13/25 10:45 83/50 02/13/25 10:45 83/50 02/13/25 10:35 107 21 59/28 (38) 88 02/13/25 10:25 65/40 02/13/25 10:25 65/40 02/13/25 10:20 108 24 77/45 (56) 95 02/13/25 10:10 69/40 02/13/25 10:10 69/40 02/13/25 10:09 69/40 02/13/25 10:07 81/46 02/13/25 10:05 108 24 72/40 (51) 93 02/13/25 10:05 109 24 72/40 (51) 92 40 02/13/25 10:00 96 Mechanical Ventilator 02/13/25 10:00 96 Mechanical Ventilator+ 50 50 02/13/25 10:00 81/48 02/13/25 10:00 50 02/13/25 10:00 30 98 Mechanical Ventilator+ 50 50 02/13/25 10:00 110 02/13/25 09:50 106 24 81/46 (58) 96 02/13/25 09:35 111 24 83/52 (62) 8/21/25 09:25 83/49 02/13/25 09:20 111 22 99/65 (76) 99 02/13/25 09:10 83/56 02/13/25 09:05 113 24 81/52 (62) 97 02/13/25 08:50 114 24 82/52 (62) 97 02/13/25 08:48 82/52 02/13/25 08:45 114 24 77/53 (61) 98 02/13/25 08:40 80/55 02/13/25 08:30 75/48 02/13/25 08:30 113 24 88/52 (64) 98 02/13/25 08:25 113 24 75/48 (57) 99 40 02/13/25 08:15 111 24 84/58 (67) 98 02/13/25 08:00 107 24 96 Mechanical Ventilator+ 40 40 02/13/25 08:00 24 96 Mechanical Ventilator+ 40 40 02/13/25 08:00 40 02/13/25 08:00 108 02/13/25 08:00 109 24 94/65 (75) 98 02/13/25 07:45 107 24 102/71 (81) 97 02/13/25 07:35 84/57 02/13/25 07:30 104 24 110/69 (83) 93 02/13/25 07:20 84/57 02/13/25 07:15 95.2 105 24 87/59 (68) 97 95.2 02/13/25 07:05 79/52 02/13/25 07:00 95.2 104 24 85/55 (65) 97 95.2 02/13/25 06:58 83/57 02/13/25 06:45 95.2 103 24 90/57 (68) 96 95.2 02/13/25 06:40 87/59 02/13/25 06:36 103 24 88/55 (66) 96 40 02/13/25 06:35 77/50 02/13/25 06:30 95.2 103 24 87/58 (68) 96 95.2 02/13/25 06:28 84/56 02/13/25 06:18 89/56 02/13/25 06:15 95.2 102 23 99/52 (68) 96 95.2 02/13/25 06:00 24 96 Mechanical Ventilator+ 40 40 02/13/25 06:00 40 02/13/25 06:00 101 02/13/25 06:00 95.2 100 20 117/72 (87) 99 95.2 02/13/25 05:47 89/36 02/13/25 05:45 94.1 99 22 127/71 (89) 100 94.1 02/13/25 05:32 104/54 02/13/25 05:30 94.1 92 23 104/54 (71) 99 94.1 02/13/25 05:30 89/36 02/13/25 05:28 94 24 100 02/13/25 05:18 105 24 93 Mechanical Ventilator+ 40 40 02/13/25 05:18 94.1 90 24 102/51 (68) 100 94.1 02/13/25 05:15 94.1 85 24 102/51 (68) 99 94.1 02/13/25 05:00 108/51 02/13/25 04:45 91 24 101/53 (69) 100 40 02/13/25 04:45 93.4 94 12 101/53 (69) 99 93.4 02/13/25 04:30 93.0 89 12 99/46 (63) 99 93.0 02/13/25 04:30 99/46 02/13/25 04:16 208.0 0 Ambu-Bag 187 02/13/25 04:15 92.7 87 12 102/45 (64) 99 92.7 02/13/25 04:15 02/13/25 04:00 85 02/13/25 04:00 88/42 02/13/25 04:00 92.3 85 11 88/42 (57) 99 92.3 02/13/25 03:58 85 12 88/42 (57) 100 100 02/13/25 03:45 92.1 80 11 97/50 (66) 100 92.1 02/13/25 03:43 97/50 02/13/25 03:30 92.1 77 11 107/50 (69) 100 92.1 02/13/25 03:30 107/50 02/13/25 03:18 92.1 76 11 104/50 (68) 100 92.1 02/13/25 03:00 99/41 02/13/25 02:45 92.5 75 13 88/55 (66) 100 92.5 02/13/25 02:30 92.7 74 12 91/35 (53) 100 92.7 02/13/25 02:30 91/35 02/13/25 02:20 187 Ambu-Bag 02/13/25 02:15 79/32 02/13/25 02:10 77/31 02/13/25 02:05 74/39 02/13/25 02:00 72/02/13/25 02:00 72/02/13/25 01:45 80 12 64/31 100 100 02/13/25 01:45 80 12 64/ (42) 100 100 02/13/25 01:14 116 02/13/25 01:10 97.8 0 0 0/0 0 97.8 02/13/25 01:00 76 100 Mechanical Ventilator+ 100 100 Laboratory Tests Test 02/13/25 01:10 02/13/25 06:20 Lactic Acid Level 22.8 mmol/L (0.4-2.0) *H 7.6 mmol/L (0.4-2.0) *H White Blood Count 19.0 10^3/uL (4.4-10.8) H 30.4 10^3/uL (4.4-10.8) #*H Medications Medications Dose Ordered Sig/Noah Route Start Time Stop Time Status Last Admin Dose Admin Albumin Human 50 ml @ 200 mls/hr ONCE ONCE IV 02/13/25 11:15 02/13/25 11:29 DC 02/13/25 12:04 Calcium Gluconate/ Sodium Chloride 50 ml @ 100 mls/hr Q30M IV 02/13/25 21:00 02/13/25 21:59 02/13/25 21:06 Dopamine HCl/ Dextrose 250 ml @ 12.788 mls/ hr [id number] IV 02/13/25 09:30 02/13/25 19:22 Octreotide Acetate 500 mcg/ Sodium Chloride 100 ml @ 10 mls/hr Q10H IV 02/13/25 10:45 02/13/25 20:51 Pantoprazole Sodium 40 mg BID IV 02/13/25 10:00 02/13/25 10:51 DC 02/13/25 10:15 Pantoprazole Sodium 50 ml @ 10 mls/hr Q5H IV 02/13/25 10:45 02/13/25 20:51 Sodium Bicarbonate 150 ml/Dextrose 1,150 ml @ 150 mls/hr Q7H40M IV 02/13/25 10:45 02/13/25 20:30 Sodium Chloride 1,000 ml @ 1,000 mls/hr Q1H ONCE IV 02/13/25 09:45 02/13/25 10:44 DC 02/13/25 10:08 Vasopressin 100 units/Dextrose 500 ml @ 60 mls/hr Q8H20M IV 02/13/25 20:15 02/13/25 20:15 Results Labs Test 02/13/25 20:17 02/13/25 14:18 02/13/25 14:00 02/13/25 12:50 Range/Units POC Glucose 185 H 70-106 mg/dl Blood Gas Specimen Type Arterial Blood Gas Sample Site Arterial line Blood Gas Patient Temperature 37.0 Arterial Blood Date Drawn [id number] Arterial Blood pH 7.001 *L 7.350-7.450 Arterial Blood Partial Pressure CO2 39.9 35.0-48.0 mmHg Arterial Blood Partial Pressure O2 326.6 *H 83.0-108.0 mmHg Arterial Blood HCO3 9.6 L 21.0-28.0 mmol/L Cole Test N/a Blood Gas Total Hemoglobin < 4.90 *L 13.5-17.5 g/dL Blood Gas Set Respiration Rate 30.0 Blood Gas Modality Vent - ac Blood Gas Spontaneous Rate 30 FiO2 % 100.0 Blood Gas Tidal Volume 500.0 Blood Gas PEEP or CPAP 5.0 Blood Gas Comments Blood Gas Critical Value Read Back Yes Blood Gas Notified Whom Dr. caceres Blood Gas Notified Time [id number] Blood Gas Notified By xiomy Duke rt. Potassium Level 5.0 3.5-5.1 mmol/L Troponin I High Sensitivity 213 *H </=54 ng/L Test 02/13/25 10:34 02/13/25 06:53 02/13/25 06:20 02/13/25 05:44 Range/Units Hemoglobin 5.3 #*L 13.5-17.5 g/dL Hematocrit 17.7 #L 41.0-53.0 % Sodium Level 146 #H 136-145 mmol/L Chloride Level 120 #H 98-107 mmol/L Carbon Dioxide Level 11 L 20-31 mmol/L Anion Gap 15 5-15 Blood Urea Nitrogen 37 H 9-23 mg/dL Creatinine 2.19 H 0.700-1.30 mg/dL Glomerular Filtration Rate Calc 35 >90 mL/min BUN/Creatinine Ratio 16.9 10.0-20.0 Serum Glucose 329 H 74-106 mg/dL Calcium Level 5.8 *L 8.7-10.4 mg/dL Influenza Type A Antigen Negative Negative Influenza Type B Antigen Negative Negative White Blood Count 30.4 #*H 4.4-10.8 10^3/uL Red Blood Count 3.26 L 4.5-5.90 10^6/uL Mean Corpuscular Volume 92.5 # 80.0-100.0 fL Mean Corpuscular Hemoglobin 28.7 28.0-32.0 pg Mean Corpuscular Hemoglobin Concent 31.0 L 32.0-36.0 g/dL Red Cell Distribution Width 17.8 H 11.8-14.3 % Platelet Count 181 140-450 10^3/uL Mean Platelet Volume 7.4 6.9-10.8 fL Neutrophils (%) (Auto) 37.0-80.0 % Lymphocytes (%) (Auto) 10.0-50.0 % Monocytes (%) (Auto) 0.0-12.0 % Basophils (%) (Auto) 0.0-2.0 % Neutrophils # (Auto) 1.6-8.6 10 ^3/uL Lymphocytes # (Auto) 0.4-5.4 10 ^3/uL Monocytes # (Auto) 0-1.3 10 ^3/uL Differential Total Cells Counted 100.0 100 Neutrophils % (Manual) 64 37.0-80.0 Band Neutrophils % (Manual) 19 Lymphocytes % (Manual) 13 10.0-50.0 Monocytes % (Manual) 2 0-12 Eosinophils % (Manual) 1 0-7 Basophils % (Manual) 0 0.0-2.0 Metamyelocytes % (manual) 1 Myelocytes % (Manual) 0 Promyelocytes % (Manual) 0 Blast Cells % (Manual) 0 Reactive Lymphocytes 0 Platelet Estimate Adequate Hypochromasia (manual) Slight Poikilocytosis (manual) Slight Anisocytosis (manual) Slight [place] Cells Few D-Dimer, Quantitative > 35.20 H 0.0-0.49 mg/L FEU Lactic Acid Level 7.6 *H 0.4-2.0 mmol/L Phosphorus Level 10.8 H 2.4-5.1 mg/dL Magnesium Level 3.1 H 1.6-2.6 mg/dL Total Bilirubin 0.3 0.2-1.0 mg/dL Aspartate Amino Transferase (AST) 2278 H 13-40 U/L Alanine Aminotransferase (ALT) 1467 H 7-40 U/L Alkaline Phosphatase 468 H 46-116 U/L Ammonia 51 H 11-32 umol/L Total Protein 4.6 L 5.7-8.2 g/dL Albumin 2.9 L 3.2-4.8 g/dL SARS-CoV-2 Antigen (Rapid) Negative NEGATIVE Test 02/13/25 05:25 02/13/25 01:10 Range/Units Arterial Blood Oxygen Saturation 91.6 L 94.0-98.0 % Arterial Blood Base Excess -19.1 L -2.0-3.0 mmol/L Arterial Blood Oxyhemoglobin 91.1 L 94.0-98.0 % Arterial Blood Carboxyhemoglobin 0.4 L 0.5-1.5 % Arterial Blood Methemoglobin 0.2 0.0-1.5 % Nucleated Red Blood Cells 1.0 % Macrocytosis Marked Prothrombin Time 12.6 H 9.3-11.8 sec Prothrombin Time INR 1.21 H 0.9-1.15 Activated Partial Thromboplast Time 109.0 *H 24.5-34.5 SEC Admitting Diagnosis: - Cardiac arrest status post CPR Cardiology consult, monitoring - Rectal bleeding GI consult, daily labs, monitoring -Septic shock Medication, monitoring -Cerebral edema Neurology consult, monitoring - Hyperkalemia Medication, monitoring -Elevated troponin Cardiology consult, daily labs, medication, trend troponin - Shock liver Nephrology consult, medication, monitoring -Acute kidney injury Nephrology consult, medication, monitoring -VMN -Pulmonary edema Medication, monitoring and monitoring - Multi organ failure Cardiology, pulmonology, neurology, nephrology, ID, GI consult. Daily labs Plan discussed with: VALE Moody NP Feb 13, 2025 02:28
[2025-02-13 02:33] LABS: Partial Thromboplastin Time 109.0 SEC (24.5-34.5)
--- NOTE | 2025-02-13 02:45 | DVH ---
CHEST RADIOGRAPH Indication: cardiopulm arrest Technique: Single frontal view of the chest was obtained Comparison: None FINDINGS: Lines and Tubes: Endotracheal tube and enteric tubes are in appropriate position. Lungs: No focal consolidation. Mild pulmonary vascular congestion. Question interstitial edema. Pleura: No effusion. No pneumothorax. Cardiomediastinal contours: Unremarkable Bones: No acute osseous abnormality. IMPRESSION: 1. Endotracheal and enteric tubes are in appropriate position. 2. Mild pulmonary vascular congestion and interstitial edema. 3. No focal consolidations.
[2025-02-13] MEDS: SODIUM CHLORIDE 0.9% 1,000 ML IV ONE ×3 (03:20→10:08)
[2025-02-13] MEDS: SODIUM CHLORIDE 0.9% 1,000 ML IV SCH ×2 (03:20→05:15)
[2025-02-13 03:29] LABS: Nucleated Red Blood Cells % 1.0 %; Total Cells Counted 100.0 (100)
[2025-02-13 03:30] LABS: Macrocytosis Marked
[2025-02-13] MEDS: PANTOPRAZOLE 40 MG/10 ML VIAL INJ IV ONE (03:30)
[2025-02-13] MEDS: SODIUM BICARB 8.4% 50Meq/50ml SYR Vial IV ONE ×2 (03:43→05:57)
[2025-02-13] MEDS: FUROSEMIDE 40 MG/4 ML VIAL IV ONE (03:43)
[2025-02-13] MEDS: ALBUMIN 25% 100 ML IV ONE (03:44)
[2025-02-13] MEDS: InsuLIN REG 1unit/0.01ml Soln (100units/ml) SC SCH (04:00)
[2025-02-13] MEDS: ACCU-CHEK COMFORT CURVE STRIP VI SCH (04:01)
[2025-02-13 04:22] LABS: Base Excess -26.6 mmol/L (-2.0-3.0)
[2025-02-13 04:23] LABS: Alkaline Phosphatase 115 U/L (46-116); Anion Gap 19.00001 (5-15); BUN/Creatinine Ratio 27.8 (10.0-20.0); Sodium 144 mmol/L (136-145)
[2025-02-13] MEDS: NOREPINEPHRINE 8 MG/250ML KIT 250 ML IV ONE (04:24)
[2025-02-13] MEDS: MIDAZOLAM DRIP 50 mg/50mL 50 ML IV ONE (04:24)
[2025-02-13 04:25] LABS: Alanine Aminotransferase 787 U/L (7-40); Albumin 2.0 g/dL (3.2-4.8); Bilirubin, Total < 0.2 mg/dL (0.2-1.0); Blood Urea Nitrogen 42 mg/dL (9-23); Calcium 7.8 mg/dL (8.7-10.4); Chloride 115 mmol/L (98-107); Glucose 393 mg/dL (74-106); Total Protein 3.4 g/dL (5.7-8.2)
[2025-02-13 04:27] LABS: Carbon Dioxide < 10 mmol/L (20-31); Potassium 6.1 mmol/L (3.5-5.1)
--- NOTE | 2025-02-13 05:02 | DVH ---
Exam: CT CT AB PEL WO CON-NO ORAL OR IV History: diarrhea Comparison Study: None Technique: Multidetector spiral CT of the abdomen was performed from lung bases to pubic symphysis. I maging was performed without IV contrast. Axial, coronal and sagittal multiplanar reformats were obta ined from the axial data set by the technologist. Radiation Dose : 1. Abdomen/Pelvis: CTDIvol 10.61 mGy, DLP 651.69 mGy*cm. Findings: Evaluation of solid organs is limited due to lack of intravenous contrast use. Lung Bases: Moderate patchy posterior bilateral lower lobe parenchymal consolidation superimposed on diffuse paraseptal emphysematous parenchymal change. Normal heart size. No pleural or pericardial ef fusion. Liver: The liver is normal in size. No focal lesions. Gallbladder and Biliary Tree: Moderate gallbladder distention. Spleen: Unremarkable Pancreas: The pancreas is grossly normal in appearance. Adrenal Glands: Unremarkable Kidneys: Nonobstructing bilateral pelvocaliceal calculi measure up to 6 mm in diameter. Exophytic rig ht inferior pole renal cortical cyst measures 1.4 cm. No evidence of hydronephrosis. Bladder: Grossly unremarkable for degree of distention. Donaldson catheter. Bowel: The stomach is grossly normal in appearance. Enteric catheter terminates within the gastric sharon men. Moderately distended fluid-filled segments of predominantly small bowel throughout the abdomen a nd upper pelvis without identifiable obstructive etiology. Rectal catheter noted. The appendix is not visualized; however, no secondary findings of acute appendicitis identified. Ascites: Absent Lymphadenopathy: No mesenteric, retroperitoneal or periportal lymphadenopathy. Abdominal Wall and Mesentery: Unremarkable. Vasculature: The visualized abdominal aorta is normal in size and caliber. Atherosclerotic vascular c alcifications. Evaluation of abdominal and pelvic vessels is limited due to lack of intravenous contr ast. Right common femoral central venous catheter terminates at the origin of the inferior vena cava. Pelvic Organs: Unremarkable Musculoskeletal: No aggressive focal bony lesions, acute fractures or dislocation. IMPRESSION: 1. Moderate patchy posterior bilateral lower lobe parenchymal consolidation superimposed on diffuse p araseptal emphysematous parenchymal change. 2. Moderately distended fluid-filled segments of predominantly small bowel throughout the abdomen and upper pelvis without identifiable obstructive etiology. 3. Moderate gallbladder distention. 4. Nonobstructive bilateral nephrolithiasis. 5. Enteric catheter, right common femoral central venouscatheter, rectal catheter and Donaldson catheter. Radiation optimization: All CT scans at this facility use at least one of these dose optimization xander hniques: automated exposure control mA and/or kV adjustment per patient size (includes targeted exam s where dose is matched to clinical indication) or iterative reconstruction.
[2025-02-13] MEDS: VASOPRESSIN 20 UNIT/ML ONE (05:07)
[2025-02-13] MEDS: PHENYLEPHRINE IV 250 ML IV ONE (05:07)
--- NOTE | 2025-02-13 05:10 | DVH ---
EXAM: CT HEAD WITHOUT CONTRAST INDICATION: aloc TECHNIQUE: CT of the head without intravenous contrast. Radiation Dose : 1. Head: CT Dose: CTDI volume is 55.63 mGy. Dose-length product is 1096.39 mGy*cm The dose indicators for CT are the volume Computed Tomography (CT) Dose Index (CTDIvol) and the Dose Length Product (DLP), and are measured in units of mGy and mGy-cm, respectively. These indicators are not patient dose, but values generated from the CT scanner acquisition factors. The report includes radiation exposure data for exposures received during this examination. COMPARISON: None FINDINGS: There is no evidence of acute intracranial hemorrhage, extra-axial collection, mass effect, midline s hift, herniation or hydrocephalus. The ventricles, sulci and cisterns are age appropriate. There is mild diffuse loss of cortes-white matter differentiation. The visualized paranasal sinuses and mastoid air cells are clear. The surrounding soft tissues and osseous structures are unremarkable. IMPRESSION: There is global loss of cortes-white matter differentiation and suggestion of mild diffuse cerebellar a nd cerebral edema. Findings may represent global hypoxic ischemic injury. Clinical correlation advis ed.
[2025-02-13] MEDS: SODIUM BICARB 8.4% 50Meq/50ml SYR INJ IV ONE ×2 (05:25→23:06)
[2025-02-13] MEDS: ALBUTEROL SULF 2.5 MG/0.5ML(0.5%) NEB SOLN NEB ONE ×3 (05:25→23:03)
[2025-02-13] MEDS: DEXTROSE (50%) 50ML SYRG IV ONE ×2 (05:26→23:07)
[2025-02-13] MEDS: CALCIUM GLUC 1,000mg/50ml-NS 50 ML IV ONE ×3 (05:26→23:06)
[2025-02-13] MEDS: InsuLIN REG 1unit/0.01ml Soln (100units/ml) IV ONE ×3 (05:31→23:21)
[2025-02-13 05:32] LABS: Base Excess -19.1 mmol/L (-2.0-3.0)
[2025-02-13] MEDS: FUROSEMIDE 20 MG/2 ML VIAL IV ONE ×2 (05:32→23:06)
[2025-02-13] MEDS: ALBUTEROL SULF 2.5 MG/0.5ML(0.5%) NEB SOLN ONE (05:44)
[2025-02-13] MEDS: ALBUMIN 25% 50 ML IV SCH (05:46)
[2025-02-13] MEDS: VASOPRESSIN 20 UNITS in SODIUM CHL 0.9% 99 ML IV SCH (05:47)
[2025-02-13] MEDS: DOXYCYCLINE 100MG/100ML 100 ML IV SCH (06:02)
[2025-02-13] MEDS: SODIUM BICARB 8.4% 50Meq/50ml SYR INJ ONE (06:02)
[2025-02-13] MEDS: PHENYLEPHRINE IV 250 ML IV SCH (06:18)
[2025-02-13] MEDS: PIPERACILLIN-TAZOB 3.375GM 100 ML IV SCH (06:45)
[2025-02-13 06:49] LABS: COVID19 ANTIGEN SOFIA FIA NEGATIVE (NEGATIVE)
[2025-02-13 07:01] LABS: Hematocrit 30.4 % (41.0-53.0); Hemoglobin 9.3 g/dL (13.5-17.5)
[2025-02-13 07:03] LABS: Hematocrit 30.2 % (41.0-53.0); Hemoglobin 9.4 g/dL (13.5-17.5); Mean Corpuscular Hemoglobin 28.7 pg (28.0-32.0); Mean Corpuscular Volume 92.5 fL (80.0-100.0)
[2025-02-13 07:16] LABS: Anion Gap 13 (5-15); BUN/Creatinine Ratio 22.4 (10.0-20.0); Sodium 140 mmol/L (136-145)
[2025-02-13] MEDS: EPINEPHrine HCL 250 ML IV ONE (07:16)
[2025-02-13] MEDS: EPINEPHrine HCL 250 ML IV SCH (07:35)
[2025-02-13 07:39] LABS: Alanine Aminotransferase 1467 U/L (7-40); Albumin 2.9 g/dL (3.2-4.8); Alkaline Phosphatase 468 U/L (46-116); Bilirubin, Total 0.3 mg/dL (0.2-1.0); Blood Urea Nitrogen 44 mg/dL (9-23); Calcium 6.3 mg/dL (8.7-10.4); Carbon Dioxide 17 mmol/L (20-31); Chloride 110 mmol/L (98-107); Glucose 361 mg/dL (74-106); Magnesium 3.1 mg/dL (1.6-2.6); Total Protein 4.6 g/dL (5.7-8.2)
[2025-02-13 07:40] LABS: Potassium 6.2 mmol/L (3.5-5.1)
--- NOTE | 2025-02-13 09:08 | DVHINCON2 ---
Date of service: Feb 13, 2025 History of Present Illness HPI Patient is a 54-year-old gentleman who was brought to the hospital by EMS at midnight. Patient had been experiencing rectal bleeding and diarrhea for 2 days and EMS were called. Reportedly while transporting the patient to the hospital, the patient lost pulse and the EMS started CPR. Reportedly, the CPR was continued in emergency room where the patient was intubated. Patient was later transferred to ICU. There had been no reported chest pains. As per documentation of the ED physician and ICU, patient has been having dilated pupils with no reflexes. Troponin slowly went up to 191. In the morning, Cardiology was involved for cardiac aspects of care. Patient was previously (2021) coming to our office (Cardiology) as outpatient (last visit in the office was April 2022). 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 Known comorbidities to us include hyperlipidemia, CKD, neuropathy, old history of repeated pneumonia and also history of osteomyelitis of the hand for which has had some amputations years ago. Arrival EKG was showi ng sinus tachycardia/right bundle branch block/ST depressions. When I saw the patient, repeat EKG was performed in ICU and revealed sinus rhythm with no ST-T changes. Home Meds Reported Medications Cephalexin Monohydrate (Cephalexin) 500 Mg Cap, 500 MG PO BID, #60 10/25/14 Past Medical History Others Known past medical history includes hyperlipidemia, CKD, neuropathy, old history of osteomyelitis and status post right hand/finger amputation and old history of pneumonias. Family History: No pertinent Hx Smoker: No Hx (Negative) Review of Systems All Other Systems Patient is intubated and noninformative and can not provide social history/detailed past medical history/review of system H&P Exam Vital Signs Vital Signs Date Time Temp Pulse Resp B/P (MAP) Pulse Ox O2 Delivery O2 Flow Rate FiO2 02/13/25 07:35 84/57 02/13/25 07:15 95.2 105 24 97 95.2 02/13/25 06:00 Mechanical Ventilator+ 40 40 General Appeara: Other (No reflexes) Eye Exam: bilateral eye Other (Fixed and dilated) Pulmonary/Respiratory: Rhonci Cardiovascular/Chest: Regular rate, Systolic murmur Peripheral Pulses: 2+ carotid (R), 2+ carotid (L) Abdominal Exam: Soft Labs/Xrays Labs Test 02/13/25 08:03 02/13/25 06:53 02/13/25 06:30 02/13/25 06:20 Range/Units POC Glucose 282 H 70-106 mg/dl Influenza Type A Antigen Negative Negative Influenza Type B Antigen Negative Negative Hemoglobin 9.3 L 13.5-17.5 g/dL Hematocrit 30.4 L 41.0-53.0 % White Blood Count 30.4 #*H 4.4-10.8 10^3/uL Red Blood Count 3.26 L 4.5-5.90 10^6/uL Mean Corpuscular Volume 92.5 # 80.0-100.0 fL Mean Corpuscular Hemoglobin 28.7 28.0-32.0 pg Mean Corpuscular Hemoglobin Concent 31.0 L 32.0-36.0 g/dL Red Cell Distribution Width 17.8 H 11.8-14.3 % Platelet Count 181 140-450 10^3/uL Mean Platelet Volume 7.4 6.9-10.8 fL Neutrophils (%) (Auto) 37.0-80.0 % Lymphocytes (%) (Auto) 10.0-50.0 % Monocytes (%) (Auto) 0.0-12.0 % Basophils (%) (Auto) 0.0-2.0 % Neutrophils # (Auto) 1.6-8.6 10 ^3/uL Lymphocytes # (Auto) 0.4-5.4 10 ^3/uL Monocytes # (Auto) 0-1.3 10 ^3/uL Sodium Level 140 136-145 mmol/L Potassium Level 6.2 *H 3.5-5.1 mmol/L Chloride Level 110 H 98-107 mmol/L Carbon Dioxide Level 17 L 20-31 mmol/L Anion Gap 13 5-15 Blood Urea Nitrogen 44 H 9-23 mg/dL Creatinine 1.96 H 0.700-1.30 mg/dL Glomerular Filtration Rate Calc 40 >90 mL/min BUN/Creatinine Ratio 22.4 H 10.0-20.0 Serum Glucose 361 H 74-106 mg/dL Lactic Acid Level 7.6 *H 0.4-2.0 mmol/L Calcium Level 6.3 L 8.7-10.4 mg/dL Phosphorus Level 10.8 H 2.4-5.1 mg/dL Magnesium Level 3.1 H 1.6-2.6 mg/dL Total Bilirubin 0.3 0.2-1.0 mg/dL Aspartate Amino Transferase (AST) 2278 H 13-40 U/L Alanine Aminotransferase (ALT) 1467 H 7-40 U/L Alkaline Phosphatase 468 H 46-116 U/L Ammonia 51 H 11-32 umol/L Troponin I High Sensitivity 191 *H </=54 ng/L Total Protein 4.6 L 5.7-8.2 g/dL Albumin 2.9 L 3.2-4.8 g/dL Test 02/13/25 05:44 02/13/25 05:25 02/13/25 04:06 02/13/25 01:10 Range/Units SARS-CoV-2 Antigen (Rapid) Negative NEGATIVE Blood Gas Specimen Type Arterial Blood Gas Sample Site Left radial Blood Gas Patient Temperature 37.0 Arterial Blood Date Drawn [id number] Arterial Blood pH 7.008 *L 7.350-7.450 Arterial Blood Partial Pressure CO2 46.3 35.0-48.0 mmHg Arterial Blood Partial Pressure O2 85.8 83.0-108.0 mmHg Arterial Blood HCO3 11.4 L 21.0-28.0 mmol/L Arterial Blood Oxygen Saturation 91.6 L 94.0-98.0 % Arterial Blood Base Excess -19.1 L -2.0-3.0 mmol/L Arterial Blood Oxyhemoglobin 91.1 L 94.0-98.0 % Arterial Blood Carboxyhemoglobin 0.4 L 0.5-1.5 % Arterial Blood Methemoglobin 0.2 0.0-1.5 % Cole Test Modified Blood Gas Total Hemoglobin 10.90 L 13.5-17.5 g/dL Blood Gas Set Respiration Rate 24.0 Blood Gas Modality Vent - ac FiO2 % 40.0 Blood Gas Tidal Volume 500.0 Blood Gas PEEP or CPAP 5.0 Blood Gas Critical Value Read Back yes Blood Gas Notified Whom katie myers Blood Gas Notified Time [id number] Blood Gas Notified By azam arroyo Blood Gas Comments Nucleated Red Blood Cells 1.0 % Macrocytosis Marked Prothrombin Time 12.6 H 9.3-11.8 sec Prothrombin Time INR 1.21 H 0.9-1.15 Activated Partial Thromboplast Time 109.0 *H 24.5-34.5 SEC Assessment/Plan Plan Patient is a 54-year-old gentleman who was brought to the hospital by EMS at midnight. Patient had been experiencing rectal bleeding and diarrhea for 2 days and EMS were called. Reportedly while transporting the patient to the hospital, the patient lost pulse and the EMS started CPR. Reportedly, the CPR was continued in emergency room where the patient was intubated. Patient was later transferred to ICU. There had been no reported chest pains. As per documentation of the ED physician and ICU, patient has been having dilated pupils with no reflexes. Troponin slowly went up to 191. In the morning, Cardiology was involved for cardiac aspects of care. Patient was previously (2021) coming to our office (Cardiology) as outpatient (last visit in the office was April 2022). 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 Known comorbidities to us include hyperlipidemia, CKD, neuropathy, old history of repeated pneumonia and also history of osteomyelitis of the hand for which has had some amputations years ago. Arrival EKG was showing sinus tachycardia/right bundle branch block/ST depressions. When I saw the patient, repeat EKG was performed in ICU and revealed sinus rhythm with no ST-T changes. Lying flat in bed. Intubated. Pupils are dilated and fixed. Scattered rhonchi in the lungs is heard. Cardiac: Regular, no thrill. Systolic murmur 2/6 in the apex is heard. Abdomen is soft. Bowel sound is increased. Extremities do not reveal edema. Known past medical history includes hyperlipidemia, CKD, neuropathy, old history of osteomyelitis and status post right hand/finger amputation and old history of pneumonias. Echocardiogram of April 2022 (performed in the office) revealed ejection fraction of 60-65% and no specific valvular disease Nuclear stress test of September 2021 (performed in the office) revealed normal perfusion WBC: 19 - 30.4 Hemoglobin: 3.9 - 9.4 (status post PRBC transfusion) - 9.3 Creatinine: 1.46 - 1.51 Potassium: 7.0 - 6.1 Lactic acid: 22.8 - 7.6 AST/ALT: 488/360 - 1057/787 Troponin (high sensitive): 3 - 14 - 191 Chest x-ray reported: IMPRESSION: 1. Endotracheal and enteric tubes are in appropriate position. 2. Mild pulmonary vascular congestion and interstitial edema. 3. No focal consolidations. CT of the abdomen and pelvis reported: IMPRESSION: 1. Moderate patchy posterior bilateral lower lobe parenchymal consolidation superimposed on diffuse paraseptal emphysematous parenchymal change. 2. Moderately distended fluid- filled segments of predominantly small bowel throughout the abdomen and upper pelvis without identifiable obstructive etiology. 3. Moderate gallbladder dis tention. 4. Nonobstructive bilateral nephrolithiasis. 5. Enteric catheter, right common femoral central venouscatheter, rectal catheter and Donaldson catheter. CT of the head reported: IMPRESSION: There is global loss of cortes-white matter differentiation and suggestion of mild diffuse cerebellar and cerebral edema. Findings may represent global hypoxic ischemic injury. Clinical correlation advised. EKG (on arrival) revealed sinus tachycardia/right bundle branch block/ST-de pression. Repeat EKG revealed sinus rhythm with no ST-T changes Tele reveals sinus rhythm Patient is a 54-year-old gentleman who had significant GI bleeding and while he was being brought to the hospital arrested. At the time of evaluation in ICU, multiorgan failure is present. Patient does not have any reflexes and pupils are dilated and fixed. Imaging of the brain is in favor of global hypoxic ischemic injury. Clinically the patient does not have any reflexes. Liver function tests has been abnormal. Presentation included hyperkalemia and AMPARO on CKD can be considered. Patient has received blood transfusion for significant anemia (hemoglobin on arrival was 3.9). First EKG questioned ST-T depressions. Component of coronary disease can not be ruled out. As the patient was brought with significant bleeding/anemia, anticoagulation/antiplatelets are withheld. If the patient's brain function improves and regains higher brain function capacity, ischemic workup/cardiac catheterization will be considered Arrest Multiorgan failure Respiratory failure on vent AMPARO on CKD Hypoxic liver injury? Hyperkalemia, on arrival Significant anemia GI bleeding, significant Abnormal troponin Cardiac suggestion for management: Manage in ICU Follow-up electrolytes and kidney function tests and correct abnormalities Manage and correct hyperkalemia Request for echocardiogram Neurology evaluation is suggested Consider CT of the chest Pulmonary evaluation GI evaluation Further evaluation and management depends on the above and clinical course Patient's outcome heavily depends on neurologic recovery (poor prognosis) Thank you for consultation A total of 75 minutes was spent reviewing the patient record, examining the patient, making a diagnostic and therapeutic plan, discussing this plan with medical personnel, following up on diagnostic studies and following the patient for clinical stability excluding any and all procedures. At least 50% of this time was spent in direct, [id number] contact. Thank you for allowing me to participate in this patient's care. Further recommendations will depend on patient's clinical course. Please do not hesitate to contact me if you have any questions or concerns. This medical document was created using electronic medical record system with [employer] computerized dictation system. Although this document has been carefully reviewed, there may still be some phonetic and typographical errors. These areas are purely typographical due to the imperfection of the software programs, and do not reflect any compromise in the patient's medical care. Plan discussed with: Spouse (on the phone (Rosibel: [phone])) NAI MUNOZ MD Feb 13, 2025 09:08
[2025-02-13 09:18] LABS: Total Cells Counted 100.0 (100)
[2025-02-13 09:19] LABS: Anisocytosis Slight
[2025-02-13] MEDS: DOPamine 1600MCG/ML D5W 250 ML IV SCH (10:07)
[2025-02-13] MEDS: DOPamine 1600MCG/ML D5W 250 ML IV ONE (10:07)
[2025-02-13] MEDS: PANTOPRAZOLE 40 MG/10 ML VIAL INJ IV SCH (10:15)
[2025-02-13] MEDS ORDERED: SODIUM BICARB 50mEq/50ml Vial 150 ML in D5W 5% 1,000 ML IV SCH (10:45)
--- NOTE | 2025-02-13 10:48 | DVHINCON2 ---
Date of service: Feb 13, [address] alberts Reason for Consultation crit care management History of Present Illness HPI Patient is a 54-year-old gentleman with a history of I COPD smoker history of Graves disease who collapsed at home and was noted to have fresh blood per rectum. The patient required CPR on route was intubated in the ER. Transferred to ICU where he is currently on 4 pressors his systolic blood pressures in the 60's. Initial ABG pH 6.7 pCO2 71 PO2 363. Currently on the ventilator AC volume control rate of 24 tidal volume 450 peep of 5 FiO2 100%. Home Meds Reported Medications Cephalexin Monohydrate (Cephalexin) 500 Mg Cap, 500 MG PO BID, #60 10/25/14 Past Medical History Cardiac: No pertinent Hx Pulmonary: No pertinent Hx Central Nervous System: No pertinent Hx GI: No pertinent Hx Hemotology/Oncology: No pertinent Hx Hepatobiliary: No pertinent Hx Psychiatric: No pertinent Hx Musculoskeletal: No pertinent Hx Rheumotologic: No pertinent Hx Infectious Disease: No peritnent Hx ENT: No pertinent Hx Renal/: No pertinent Hx Endocrine: Other (Graves disease ) Dermatology: No pertinent Hx Others Known past medical history includes hyperlipidemia, CKD, neuropathy, old history of osteomyelitis and status post right hand/finger amputation and old history of pneumonias. Past Surgical History: No pertinent Hx Family History: No pertinent Hx Smoker: No Hx (Negative) Alocohol: None Drugs: None Lives with: With family Domestic Violence: Neg Review of Systems Comments unable to perform-patient intubated and sedated H&P Exam Vital Signs Vital Signs Date Time Temp Pulse Resp B/P (MAP) Pulse Ox O2 Delivery O2 Flow Rate FiO2 02/13/25 10:09 69/40 02/13/25 10:05 109 24 92 40 02/13/25 07:15 95.2 95.2 02/13/25 06:00 Mechanical Ventilator+ General Appeara: Well developed, Well nourished, Normal Appearance Head Exam: Normal inspection Neck Exam: Normal inspection, Non-tender, Normal alignment Eye Exam: bilateral eye Normal inspection, bilateral eye PERRL, bilateral eye EOMI Ear Exam: bilateral ear Auricle normal, bilateral ear Canal normal, bilateral ear TM normal Nasal Exam: Normal inspection Mouth: Normal Inspection Pulmonary/Respiratory: Normal inspection Cardiovascular/Chest: Normal inspection Peripheral Pulses: 4+ Radial (R), 4+ Radial (L), 4+ Brachial (R), 4+ Brachial (L) Abdominal Exam: Normal bowel sounds Labs/Xrays Labs Test 02/13/25 08:03 02/13/25 06:53 02/13/25 06:30 02/13/25 06:20 Range/Units POC Glucose 282 H 70-106 mg/dl Influenza Type A Antigen Negative Negative Influenza Type B Antigen Negative Negative Hemoglobin 9.3 L 13.5-17.5 g/dL Hematocrit 30.4 L 41.0-53.0 % White Blood Count 30.4 #*H 4.4-10.8 10^3/uL Red Blood Count 3.26 L 4.5-5.90 10^6/uL Mean Corpuscular Volume 92.5 # 80.0-100.0 fL Mean Corpuscular Hemoglobin 28.7 28.0-32.0 pg Mean Corpuscular Hemoglobin Concent 31.0 L 32.0-36.0 g/dL Red Cell Distribution Width 17.8 H 11.8-14.3 % Platelet Count 181 140-450 10^3/uL Mean Platelet Volume 7.4 6.9-10.8 fL Neutrophils (%) (Auto) 37.0-80.0 % Lymphocytes (%) (Auto) 10.0-50.0 % Monocytes (%) (Auto) 0.0-12.0 % Basophils (%) (Auto) 0.0-2.0 % Neutrophils # (Auto) 1.6-8.6 10 ^3/uL Lymphocytes # (Auto) 0.4-5.4 10 ^3/uL Monocytes # (Auto) 0-1.3 10 ^3/uL Differential Total Cells Counted 100.0 100 Neutrophils % (Manual) 64 37.0-80.0 Band Neutrophils % (Manual) 19 Lymphocytes % (Manual) 13 10.0-50.0 Monocytes % (Manual) 2 0-12 Eosinophils % (Manual) 1 0-7 Basophils % (Manual) 0 0.0-2.0 Metamyelocytes % (manual) 1 Myelocytes % (Manual) 0 Promyelocytes % (Manual) 0 Blast Cells % (Manual) 0 Reactive Lymphocytes 0 Platelet Estimate Adequate Hypochromasia (manual) Slight Poikilocytosis (manual) Slight Anisocytosis (manual) Slight [place] Cells Few D-Dimer, Quantitative > 35.20 H 0.0-0.49 mg/L FEU Sodium Level 140 136-145 mmol/L Potassium Level 6.2 *H 3.5-5.1 mmol/L Chloride Level 110 H 98-107 mmol/L Carbon Dioxide Level 17 L 20-31 mmol/L Anion Gap 13 5-15 Blood Urea Nitrogen 44 H 9-23 mg/dL Creatinine 1.96 H 0.700-1.30 mg/dL Glomerular Filtration Rate Calc 40 >90 mL/min BUN/Creatinine Ratio 22.4 H 10.0-20.0 Serum Glucose 361 H 74-106 mg/dL Lactic Acid Level 7.6 *H 0.4-2.0 mmol/L Calcium Level 6.3 L 8.7-10.4 mg/dL Phosphorus Level 10.8 H 2.4-5.1 mg/dL Magnesium Level 3.1 H 1.6-2.6 mg/dL Total Bilirubin 0.3 0.2-1.0 mg/dL Aspartate Amino Transferase (AST) 2278 H 13-40 U/L Alanine Aminotransferase (ALT) 1467 H 7-40 U/L Alkaline Phosphatase 468 H 46-116 U/L Ammonia 51 H 11-32 umol/L Total Protein 4.6 L 5.7-8.2 g/dL Albumin 2.9 L 3.2-4.8 g/dL Test 02/13/25 05:44 02/13/25 05:25 02/13/25 04:06 02/13/25 01:10 Range/Units SARS-CoV-2 Antigen (Rapid) Negative NEGATIVE Blood Gas Specimen Type Arterial Blood Gas Sample Site Left radial Blood Gas Patient Temperature 37.0 Arterial Blood Date Drawn [id number] Arterial Blood pH 7.008 *L 7.350-7.450 Arterial Blood Partial Pressure CO2 46.3 35.0-48.0 mmHg Arterial Blood Partial Pressure O2 85.8 83.0-108.0 mmHg Arterial Blood HCO3 11.4 L 21.0-28.0 mmol/L Arterial Blood Oxygen Saturation 91.6 L 94.0-98.0 % Arterial Blood Base Excess -19.1 L -2.0-3.0 mmol/L Arterial Blood Oxyhemoglobin 91.1 L 94.0-98.0 % Arterial Blood Carboxyhemoglobin 0.4 L 0.5-1.5 % Arterial Blood Methemoglobin 0.2 0.0-1.5 % Cole Test Modified Blood Gas Total Hemoglobin 10.90 L 13.5-17.5 g/dL Blood Gas Set Respiration Rate 24.0 Blood Gas Modality Vent - ac FiO2 % 40.0 Blood Gas Tidal Volume 500.0 Blood Gas PEEP or CPAP 5.0 Blood Gas Critical Value Read Back yes Blood Gas Notified Whom fixed income analyst louis Blood Gas Notified Time [id number] Blood Gas Notified By donor recruiter cruz Blood Gas Comments Nucleated Red Blood Cells 1.0 % Macrocytosis Marked Prothrombin Time 12.6 H 9.3-11.8 sec Prothrombin Time INR 1.21 H 0.9-1.15 Activated Partial Thromboplast Time 109.0 *H 24.5-34.5 SEC Assessment/Plan Admitting Diagnosis: Plan Impression Acute GI bleed Acute hypoxemic respiratory failure Hemorrhagic shock Multiorgan failure S/p cardiac arrest Metabolic acidosis Acute kidney injury Patient seen and examined in ICU Events On mechanical ventilation S/p intubation PEEP 5, FiO2 100% Left axillary arterial line placed for hemodynamic monitoring See separate note for procedure in detail Labs and imaging reviewed White count elevated at 30.4 Hemoglobin 3.9 ABG reviewed Severely acidotic pH 6.71, pCO2 71, pO2 363 3 amps of sodium bicarb given Ventilator changes made to compensate Management Vent support Titrate to maintain sats 90% or above Sedation for vent synchrony Antibiotics Bronchodilators Monitor renal function Monitor electrolytes Supplement as needed Pressors as needed for hemodynamic support To maintain a mean arterial pressure of 65 mmHg Continue Protonix and Sandostatin drip Prognosis very poor Family at the bedside and updated DVT prophylaxis Critical care time 35 minutes Plan discussed with: Other FUNMILAYO KRISHNA MD Feb 13, 2025 10:47
[2025-02-13] MEDS: PANTOPRAZOLE 40mg/50ML NS AE 50 ML IV SCH (11:07)
--- NOTE | 2025-02-13 11:15 | ECG ---
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
[2025-02-13 11:38] LABS: Hematocrit 17.7 % (41.0-53.0)
[2025-02-13 11:40] LABS: Hemoglobin 5.3 g/dL (13.5-17.5)
[2025-02-13] MEDS: SODIUM BICARB 50mEq/50ml Vial 150 ML in D5W 5% 1,000 ML IV SCH (12:02)
[2025-02-13] MEDS: OCTREOTIDE ACETATE 500 MCG in SODIUM CHL 0.9% 99 ML IV SCH (12:02)
[2025-02-13] MEDS: ALBUMIN 5% 50 ML IV ONE (12:04)
--- NOTE | 2025-02-13 13:31 | DVHCONRES ---
Date Seen: Feb 13, 2025 Resident Creating Document: KOREY MONCADA RESIDENT Referring Physician VALE DONOVAN NP Reason for Consultation gi bleed, s/p arrest History of Present Illness * Patient with history of COPD, smoking, Graves disease, CKD, neuropathy, hyperlipidemia, pneumonia, osteomyelitis (s/p right hand finger amputation). * Collapsed at home after 2 days of bright red rectal bleeding with diarrhea and altered mental status. * EMS found patient pulseless ? CPR and epinephrine 2 given ? intubated with ROSC at ~01:00. * On arrival: unresponsive, pupils fixed/dilated, no gag/corneal reflex, GCS 3. * GI-specific course today: * Ongoing massive lower GI bleed with rectal catheter draining bright red blood. * Multiple transfusions given: 2 units PRBC, 2 units FFP, one additional PRBC in process. * Octreotide infusion started. * PPI drip started for stress ulcer prophylaxis. * Too unstable for endoscopic intervention. * Prognosis poor. Patient is too unstable to even be turned in bed. Relevant Labs / Imaging Hematology * Hgb trend: 9.3 ? ? 5.3 g/dL (severe anemia). * Hct: 30.4% ? ? 17.7%. * WBC: 19.0 ? 13.4 K/uL (elevated). * Plt: 315 ? 181 (normal). * Peripheral smear: Hypochromia, poikilocytosis, anisocytosis, macrocytosis, nucleated RBCs. Coagulation * PT 12.6 ?, INR 1.21 ?. * aPTT 109 ? (severe coagulopathy). * D-dimer >35 ? (DIC picture). Chemistry * Electrolytes: Na 140, K? 6.2 ? 4.5 (initial severe hyperkalemia, corrected with therapy), Cl 110 ?, CO? 17 ?. * Renal: BUN 44 ?, Cr 1.96 ?, GFR 40 ?, BUN/Cr ratio 22.4 ?. * Lactic acid: 7.6 ? (shock state). * Calcium: 6.3 ?, Phos: 10.8 ?, Ma.1 ?. * Ammonia: 51 ?. * Glucose: 353753 mg/dL (stress hyperglycemia). Liver / Cardiac * AST 22,278 ? (shock liver). * ALT 1467 ?. * ALP 468 ?. * Total bilirubin elevated. * Albumin 2.9 ?. * Troponin I HS [id number] ? (shock/cardiac injury). Serology * Hepatitis panel pending (A IgM, B surface, B core IgM, C Ab). * Influenza A/B negative. * SARS-CoV-2 negative. Imaging * CT Head: Global hypoxic-ischemic injury, loss of ocrtes-white matter differentiation, mild diffuse cerebellar edema. * CT Abdomen/Pelvis: * Bilateral lower lobe parenchymal consolidation (possible pneumonia/aspiration). * Diffuse emphysematous changes. * Moderately distended small bowel fluid-filled loops (ileus/partial obstruction). * Moderate gallbladder distention. * Nonobstructing bilateral nephrolithiasis. * Donaldson and rectal catheter in place. * CXR: Pulmonary vascular congestion and interstitial edema. Past Medical History * COPD, smoking, Graves disease, hyperlipidemia, CKD, neuropathy, recurrent pneumonia, osteomyelitis (s/p right hand finger amputation). Past Surgical History * Right hand digit amputation. Social History * Smoker. Denies alcohol or drug use per EMS/. Allergies: Coded Allergies: Ciprofloxacin (Verified Allergy, Intermediate, 04/24/10) Vancomycin (Verified Allergy, Intermediate, 04/24/10) Uncoded Allergies: SULFA (Allergy, Unknown, 10/25/14) Home Meds Reported Medications Cephalexin Monohydrate (Cephalexin) 500 Mg Cap, 500 MG PO BID, #60 10/25/14 Current Medications Current Medications Medications (Trade) Dose Ordered Sig/Noah Route PRN Reason Start Time Stop Time Status Last Admin Midazolam HCl 50 ml @ 1 mls/hr Q24H IV 02/13/25 02:30 02/13/25 02:00 Norepinephrine Bitartrate 250 ml @ 3.75 mls/hr Q24H IV 02/13/25 02:30 02/13/25 10:09 Sodium Chloride 1,000 ml @ 120 mls/hr Q8H20M IV 02/13/25 02:15 02/13/25 10:19 Ondansetron HCl (Zofran) 4 mg Q4HP PRN IV NAUSEA / VOMITING 02/13/25 02:15 Nitroglycerin (Ntrostat Sublingual) 0.4 mg Q5MINP PRN SL FOR CHEST PAIN 02/13/25 02:15 Morphine Sulfate 2 mg Q30M PRN IV FOR CHEST PAIN 02/13/25 02:15 Diagnostic Test (Pha) (Accu-Chek Comfort Curve T) 1 strip IQ4HR 02/13/25 04:00 02/13/25 12:25 Insulin Human Regular (InsuLIN R) IQ4HR SC 02/13/25 04:00 02/13/25 12:26 Dextrose 50 ml UD PRN IV Blood Sugar LESS THAN 60 02/13/25 02:15 Pantoprazole Sodium (Protonix) 40 mg BID IV 02/13/25 10:00 02/13/25 10:51 DC 02/13/25 10:15 Phenylephrine HCl 250 ml @ 30 mls/hr Q8H20M IV 02/13/25 05:15 02/13/25 12:48 Vasopressin 20 units/Sodium Chloride 100 ml @ 9 mls/hr Q11H7M IV 02/13/25 05:15 02/13/25 05:47 Piperacillin Sod/ Tazobactam Sod 100 ml @ 25 mls/hr Q8HR IV 02/13/25 06:00 02/13/25 06:45 Doxycycline Hyclate 100 ml @ 50 mls/hr Q12H IV 02/13/25 05:15 02/13/25 06:02 Albumin Human 50 ml @ 100 mls/hr Q8H IV 02/13/25 05:15 02/13/25 21:44 02/13/25 12:49 Sodium Chloride 1,000 ml @ 100 mls/hr Q10H IV 02/13/25 05:15 02/13/25 05:15 Epinephrine HCl 250 ml @ 7.5 mls/hr Q24H IV 02/13/25 07:15 02/13/25 07:35 Dopamine HCl/ Dextrose 250 ml @ 12.788 mls/ hr [id number] IV 02/13/25 09:30 02/13/25 10:07 Sodium Bicarbonate 150 ml/Dextrose 1,150 ml @ 100 mls/hr [id number] IV 02/13/25 10:45 02/13/25 10:51 DC Pantoprazole Sodium 50 ml @ 10 mls/hr Q5H IV 02/13/25 10:45 02/13/25 11:07 Octreotide Acetate 500 mcg/ Sodium Chloride 100 ml @ 10 mls/hr Q10H IV 02/13/25 10:45 02/13/25 12:02 Sodium Bicarbonate 150 ml/Dextrose 1,150 ml @ 150 mls/hr Q7H40M IV 02/13/25 10:45 02/13/25 12:02 Review of Systems Unable to obtain patient unresponsive and intubated. Vital Signs Vital Signs Date Time Temp Pulse Resp B/P (MAP) Pulse Ox O2 Delivery O2 Flow Rate FiO2 02/13/25 12:55 94 30 47/24 (32) 02/13/25 12:53 97.0 97.0 02/13/25 12:50 88 02/13/25 12:12 100 02/13/25 06:00 Mechanical Ventilator+ Physical Exam * General: Intubated, critically ill, unresponsive. * Abdomen: Soft, non-distended, +bowel sounds. * Rectum: Rectal catheter with ongoing bright red blood drainage. * Skin: Pale, icteric, poor perfusion. Labs/Diagnostic Data Labs Test 02/13/25 12:50 02/13/25 10:34 02/13/25 08:03 02/13/25 06:53 Range/Units Hemoglobin 5.3 #*L 13.5-17.5 g/dL Hematocrit 17.7 #L 41.0-53.0 % Troponin I High Sensitivity 163 *H </=54 ng/L POC Glucose 282 H 70-106 mg/dl Influenza Type A Antigen Negative Negative Influenza Type B Antigen Negative Negative Test 02/13/25 06:20 02/13/25 05:44 02/13/25 05:25 02/13/25 04:06 Range/Units White Blood Count 30.4 #*H 4.4-10.8 10^3/uL Red Blood Count 3.26 L 4.5-5.90 10^6/uL Mean Corpuscular Volume 92.5 # 80.0-100.0 fL Mean Corpuscular Hemoglobin 28.7 28.0-32.0 pg Mean Corpuscular Hemoglobin Concent 31.0 L 32.0-36.0 g/dL Red Cell Distribution Width 17.8 H 11.8-14.3 % Platelet Count 181 140-450 10^3/uL Mean Platelet Volume 7.4 6.9-10.8 fL Neutrophils (%) (Auto) 37.0-80.0 % Lymphocytes (%) (Auto) 10.0-50.0 % Monocytes (%) (Auto) 0.0-12.0 % Basophils (%) (Auto) 0.0-2.0 % Neutrophils # (Auto) 1.6-8.6 10 ^3/uL Lymphocytes # (Auto) 0.4-5.4 10 ^3/uL Monocytes # (Auto) 0-1.3 10 ^3/uL Differential Total Cells Counted 100.0 100 Neutrophils % (Manual) 64 37.0-80.0 Band Neutrophils % (Manual) 19 Lymphocytes % (Manual) 13 10.0-50.0 Monocytes % (Manual) 2 0-12 Eosinophils % (Manual) 1 0-7 Basophils % (Manual) 0 0.0-2.0 Metamyelocytes % (manual) 1 Myelocytes % (Manual) 0 Promyelocytes % (Manual) 0 Blast Cells % (Manual) 0 Reactive Lymphocytes 0 Platelet Estimate Adequate Hypochromasia (manual) Slight Poikilocytosis (manual) Slight Anisocytosis (manual) Slight [place] Cells Few D-Dimer, Quantitative > 35.20 H 0.0-0.49 mg/L FEU Lactic Acid Level 7.6 *H 0.4-2.0 mmol/L Phosphorus Level 10.8 H 2.4-5.1 mg/dL Magnesium Level 3.1 H 1.6-2.6 mg/dL Total Bilirubin 0.3 0.2-1.0 mg/dL Aspartate Amino Transferase (AST) 2278 H 13-40 U/L Alanine Aminotransferase (ALT) 1467 H 7-40 U/L Alkaline Phosphatase 468 H 46-116 U/L Ammonia 51 H 11-32 umol/L Total Protein 4.6 L 5.7-8.2 g/dL Albumin 2.9 L 3.2-4.8 g/dL SARS-CoV-2 Antigen (Rapid) Negative NEGATIVE Blood Gas Specimen Type Arterial Blood Gas Sample Site Left radial Blood Gas Patient Temperature 37.0 Arterial Blood Date Drawn [id number] Arterial Blood pH 7.008 *L 7.350-7.450 Arterial Blood Partial Pressure CO2 46.3 35.0-48.0 mmHg Arterial Blood Partial Pressure O2 85.8 83.0-108.0 mmHg Arterial Blood HCO3 11.4 L 21.0-28.0 mmol/L Arterial Blood Oxygen Saturation 91.6 L 94.0-98.0 % Arterial Blood Base Excess -19.1 L -2.0-3.0 mmol/L Arterial Blood Oxyhemoglobin 91.1 L 94.0-98.0 % Arterial Blood Carboxyhemoglobin 0.4 L 0.5-1.5 % Arterial Blood Methemoglobin 0.2 0.0-1.5 % Cole Test Modified Blood Gas Total Hemoglobin 10.90 L 13.5-17.5 g/dL Blood Gas Set Respiration Rate 24.0 Blood Gas Modality Vent - ac FiO2 % 40.0 Blood Gas Tidal Volume 500.0 Blood Gas PEEP or CPAP 5.0 Blood Gas Critical Value Read Back yes Blood Gas Notified Whom psychiatric np louis Blood Gas Notified Time [id number] Blood Gas Notified By foreign language stenographer cruz Blood Gas Comments Test 02/13/25 01:10 Range/Units Nucleated Red Blood Cells 1.0 % Macrocytosis Marked Prothrombin Time 12.6 H 9.3-11.8 sec Prothrombin Time INR 1.21 H 0.9-1.15 Activated Partial Thromboplast Time 109.0 *H 24.5-34.5 SEC Assessment Assessment * Acute lower gastrointestinal hemorrhage with hemorrhagic shock. * Acute hypoxic ischemic encephalopathy. * Acute hypoxic respiratory failure requiring mechanical ventilation. * Acute on chronic kidney disease with hyperkalemia. * Acute ischemic hepatitis (shock liver). * Severe metabolic acidosis with lactic acidosis. * Severe coagulopathy (elevated PT/INR/aPTT, DIC picture). * Critical illness with poor prognosis. Plan/Recommendation Plan Gastrointestinal * Continue Octreotide infusion (Sandostatin). * Continue PRBC and FFP transfusions per protocol. * PPI drip (IV Pantoprazole) for stress ulcer prophylaxis. * NPO. * Hold anticoagulation and antiplatelet therapy. * Not stable for endoscopy/colonoscopy. * Monitor rectal bleeding closely via catheter. Hematology * Goal Hgb >7 g/dL. * Platelets transfuse if <50k. * FFP, cryoprecipitate as needed for INR/APTT correction. Hepatic * Supportive management for ischemic hepatitis. * Monitor LFTs, ammonia, INR daily. Nutrition * NPO due to active bleeding and instability. * No enteral/parenteral nutrition until stabilized. Prophylaxis * DVT prophylaxis withheld (active bleeding). * Stress ulcer prophylaxis: IV PPI. * Aspiration precautions. Case discussed in detail with the attending physician, including the clinical presentation, diagnostic workup, and comprehensive management plan Plan discussed with: Other (RN) KOREY MONCADA RESIDENT Feb 13, 2025 13:31
--- NOTE | 2025-02-13 14:49 | DVHINCON2 ---
Date of service: Feb 13, 2025 Reason for Consultation Acute kidney injury History of Present Illness History was obtained from patient's who is at bedside in the ICU 54-year-old male with past medical history of chronic pain in joint disease with takes opioids for pain recently was given prescription for naproxen for which his at bedside states he has taken several tablets over a 48 hour.. He presented due to concerns of excessive bleeding per rectum. EMS was called and patient had unresponsiveness and cardiac arrest with prolonged down down time of approximately 1 hour. Patient was transferred to the ICU currently on three pressors with continued active bleeding. Nephrology consulted for acute kidney injury. He has no previous history of kidney problems Past Surgical History finger amputations Allergies: Coded Allergies: Ciprofloxacin (Verified Allergy, Intermediate, 04/24/10) Vancomycin (Verified Allergy, Intermediate, 04/24/10) Uncoded Allergies: SULFA (Allergy, Unknown, 10/25/14) Home Meds Reported Medications Cephalexin Monohydrate (Cephalexin) 500 Mg Cap, 500 MG PO BID, #60 10/25/14 Current Medications Current Medications Medications (Trade) Dose Ordered Sig/Noah Route PRN Reason Start Time Stop Time Status Last Admin Midazolam HCl 50 ml @ 1 mls/hr Q24H IV 02/13/25 02:30 02/13/25 02:00 Norepinephrine Bitartrate 250 ml @ 3.75 mls/hr Q24H IV 02/13/25 02:30 02/13/25 10:09 Sodium Chloride 1,000 ml @ 120 mls/hr Q8H20M IV 02/13/25 02:15 02/13/25 10:19 Ondansetron HCl (Zofran) 4 mg Q4HP PRN IV NAUSEA / VOMITING 02/13/25 02:15 Nitroglycerin (Ntrostat Sublingual) 0.4 mg Q5MINP PRN SL FOR CHEST PAIN 02/13/25 02:15 Morphine Sulfate 2 mg Q30M PRN IV FOR CHEST PAIN 02/13/25 02:15 Diagnostic Test (Pha) (Accu-Chek Comfort Curve T) 1 strip IQ4HR 02/13/25 04:00 02/13/25 16:59 Insulin Human Regular (InsuLIN R) IQ4HR SC 02/13/25 04:00 02/13/25 17:01 Dextrose 50 ml UD PRN IV Blood Sugar LESS THAN 60 8/21/25 02:15 Pantoprazole Sodium (Protonix) 40 mg BID IV 02/13/25 10:00 02/13/25 10:51 DC 02/13/25 10:15 Phenylephrine HCl 250 ml @ 30 mls/hr Q8H20M IV 02/13/25 05:15 02/13/25 16:52 Vasopressin 20 units/Sodium Chloride 100 ml @ 9 mls/hr Q11H7M IV 02/13/25 05:15 02/13/25 15:10 Piperacillin Sod/ Tazobactam Sod 100 ml @ 25 mls/hr Q8HR IV 02/13/25 06:00 02/13/25 14:09 Doxycycline Hyclate 100 ml @ 50 mls/hr Q12H IV 02/13/25 05:15 02/13/25 17:08 Albumin Human 50 ml @ 100 mls/hr Q8H IV 02/13/25 05:15 02/13/25 21:44 02/13/25 12:49 Sodium Chloride 1,000 ml @ 100 mls/hr Q10H IV 02/13/25 05:15 02/13/25 05:15 Epinephrine HCl 250 ml @ 7.5 mls/hr Q24H IV 02/13/25 07:15 02/13/25 14:59 Dopamine HCl/ Dextrose 250 ml @ 12.788 mls/ hr [id number] IV 02/13/25 09:30 02/13/25 15:00 Sodium Bicarbonate 150 ml/Dextrose 1,150 ml @ 100 mls/hr [id number] IV 02/13/25 10:45 02/13/25 10:51 DC Pantoprazole Sodium 50 ml @ 10 mls/hr Q5H IV 02/13/25 10:45 02/13/25 15:06 Octreotide Acetate 500 mcg/ Sodium Chloride 100 ml @ 10 mls/hr Q10H IV 02/13/25 10:45 02/13/25 12:02 Sodium Bicarbonate 150 ml/Dextrose 1,150 ml @ 150 mls/hr Q7H40M IV 02/13/25 10:45 02/13/25 12:02 Review of Systems Can not obtain due to critical illness H&P Exam Vital Signs/I&O Vital Sign Date Time Temp Pulse Resp B/P (MAP) Pulse Ox O2 Delivery O2 Flow Rate FiO2 02/13/25 16:59 97.9 90 30 91/64 97.9 02/13/25 16:00 100 02/13/25 16:00 100 Mechanical Ventilator+ Intake and Output 02/12/25 02/13/25 19:00 07:00 Intake Total 894.49 ml Balance 894.49 ml Intake IV Total 894.49 ml Physical Exam Jaundice appearing ill male Intubated Sedated Appears critically ill On multiple pressors with hypotension Donaldson catheter shows no urinary output Labs/Diagnostic Data Labs/Diagnostic Data Laboratory Tests Test 02/13/25 16:59 02/13/25 14:18 02/13/25 14:00 02/13/25 12:50 Range/Units POC Glucose 209 H 70-106 mg/dl Blood Gas Specimen Type Arterial Blood Gas Sample Site Arterial line Blood Gas Patient Temperature 37.0 Arterial Blood Date Drawn [id number] Arterial Blood pH 7.001 *L 7.350-7.450 Arterial Blood Partial Pressure CO2 39.9 35.0-48.0 mmHg Arterial Blood Partial Pressure O2 326.6 *H 83.0-108.0 mmHg Arterial Blood HCO3 9.6 L 21.0-28.0 mmol/L Cole Test N/a Blood Gas Total Hemoglobin < 4.90 *L 13.5-17.5 g/dL Blood Gas Set Respiration Rate 30.0 Blood Gas Modality Vent - ac Blood Gas Spontaneous Rate 30 FiO2 % 100.0 Blood Gas Tidal Volume 500.0 Blood Gas PEEP or CPAP 5.0 Blood Gas Comments Blood Gas Critical Value Read Back Yes Blood Gas Notified Whom Dr. caceres Blood Gas Notified Time [id number] Blood Gas Notified By xiomy Duke rt. Potassium Level 5.0 3.5-5.1 mmol/L Test 02/13/25 10:34 02/13/25 08:03 02/13/25 06:53 02/13/25 06:30 Range/Units Hemoglobin 5.3 #*L 9.3 L 13.5-17.5 g/dL Hematocrit 17.7 #L 30.4 L 41.0-53.0 % Potassium Level 4.5 3.5-5.1 mmol/L Troponin I High Sensitivity 163 *H </=54 ng/L POC Glucose 282 H 70-106 mg/dl Influenza Type A Antigen Negative Negative Influenza Type B Antigen Negative Negative Test 02/13/25 06:20 02/13/25 05:44 02/13/25 05:25 02/13/25 04:06 Range/Units White Blood Count 30.4 #*H 4.4-10.8 10^3/uL Red Blood Count 3.26 L 4.5-5.90 10^6/uL Hemoglobin 9.4 #L 13.5-17.5 g/dL Hematocrit 30.2 #L 41.0-53.0 % Mean Corpuscular Volume 92.5 # 80.0-100.0 fL Mean Corpuscular Hemoglobin 28.7 28.0-32.0 pg Mean Corpuscular Hemoglobin Concent 31.0 L 32.0-36.0 g/dL Red Cell Distribution Width 17.8 H 11.8-14.3 % Platelet Count 181 140-450 10^3/uL Mean Platelet Volume 7.4 6.9-10.8 fL Neutrophils (%) (Auto) 37.0-80.0 % Lymphocytes (%) (Auto) 10.0-50.0 % Monocytes (%) (Auto) 0.0-12.0 % Basophils (%) (Auto) 0.0-2.0 % Neutrophils # (Auto) 1.6-8.6 10 ^3/uL Lymphocytes # (Auto) 0.4-5.4 10 ^3/uL Monocytes # (Auto) 0-1.3 10 ^3/uL Differential Total Cells Counted 100.0 100 Neutrophils % (Manual) 64 37.0-80.0 Band Neutrophils % (Manual) 19 Lymphocytes % (Manual) 13 10.0-50.0 Monocytes % (Manual) 2 0-12 Eosinophils % (Manual) 1 0-7 Basophils % (Manual) 0 0.0-2.0 Metamyelocytes % (manual) 1 Myelocytes % (Manual) 0 Promyelocytes % (Manual) 0 Blast Cells % (Manual) 0 Reactive Lymphocytes 0 Platelet Estimate Adequate Hypochromasia (manual) Slight Poikilocytosis (manual) Slight Anisocytosis (manual) Slight [place] Cells Few D-Dimer, Quantitative > 35.20 H 0.0-0.49 mg/L FEU Sodium Level 140 136-145 mmol/L Potassium Level 6.2 *H 3.5-5.1 mmol/L Chloride Level 110 H 98-107 mmol/L Carbon Dioxide Level 17 L 20-31 mmol/L Anion Gap 13 5-15 Blood Urea Nitrogen 44 H 9-23 mg/dL Creatinine 1.96 H 0.700-1.30 mg/dL Glomerular Filtration Rate Calc 40 >90 mL/min BUN/Creatinine Ratio 22.4 H 10.0-20.0 Serum Glucose 361 H 74-106 mg/dL Lactic Acid Level 7.6 *H 0.4-2.0 mmol/L Calcium Level 6.3 L 8.7-10.4 mg/dL Phosphorus Level 10.8 H 2.4-5.1 mg/dL Magnesium Level 3.1 H 1.6-2.6 mg/dL Total Bilirubin 0.3 0.2-1.0 mg/dL Aspartate Amino Transferase (AST) 2278 H 13-40 U/L Alanine Aminotransferase (ALT) 1467 H 7-40 U/L Alkaline Phosphatase 468 H 46-116 U/L Ammonia 51 H 11-32 umol/L Troponin I High Sensitivity 191 *H </=54 ng/L Total Protein 4.6 L 5.7-8.2 g/dL Albumin 2.9 L 3.2-4.8 g/dL SARS-CoV-2 Antigen (Rapid) Negative NEGATIVE Blood Gas Specimen Type Arterial Arterial Blood Gas Sample Site Left radial Left radial Blood Gas Patient Temperature 37.0 37.0 Arterial Blood Date Drawn [id number] Arterial Blood pH 7.008 *L 6.718 *L 7.350-7.450 Arterial Blood Partial Pressure CO2 46.3 71.8 *H 35.0-48.0 mmHg Arterial Blood Partial Pressure O2 85.8 363.3 *H 83.0-108.0 mmHg Arterial Blood HCO3 11.4 L 9.0 L 21.0-28.0 mmol/L Arterial Blood Oxygen Saturation 91.6 L 99.3 H 94.0-98.0 % Arterial Blood Base Excess -19.1 L -26.6 L -2.0-3.0 mmol/L Arterial Blood Oxyhemoglobin 91.1 L 97.9 94.0-98.0 % Arterial Blood Carboxyhemoglobin 0.4 L 0.0 L 0.5-1.5 % Arterial Blood Methemoglobin 0.2 1.4 0.0-1.5 % Cole Test Modified Modified Blood Gas Total Hemoglobin 10.90 L 10.40 L 13.5-17.5 g/dL Blood Gas Set Respiration Rate 24.0 12.0 Blood Gas Modality Vent - ac Vent - ac FiO2 % 40.0 100.0 Blood Gas Tidal Volume 500.0 500.0 Blood Gas PEEP or CPAP 5.0 5.0 Blood Gas Critical Value Read Back yes Yes Blood Gas Notified Whom bryce Hernandez do Blood Gas Notified Time [id number] Blood Gas Notified By account support manager cruz Blood Gas Comments Test 02/13/25 03:38 02/13/25 02:18 02/13/25 01:10 Range/Units POC Glucose 290 H 70-106 mg/dl Sodium Level 144 145 136-145 mmol/L Potassium Level 6.1 *H 7.0 *H 3.5-5.1 mmol/L Chloride Level 115 H 115 H 98-107 mmol/L Carbon Dioxide Level < 10 *L < 10 *L 20-31 mmol/L Anion Gap 19.80015 H 20.12654 H 5-15 Blood Urea Nitrogen 42 H 36 H 9-23 mg/dL Creatinine 1.51 H 1.46 H 0.700-1.30 mg/dL Glomerular Filtration Rate Calc 55 57 >90 mL/min BUN/Creatinine Ratio 27.8 H 24.7 H 10.0-20.0 Serum Glucose 393 H 356 H 74-106 mg/dL Calcium Level 7.8 L 9.5 8.7-10.4 mg/dL Total Bilirubin < 0.2 L < 0.2 L 0.2-1.0 mg/dL Aspartate Amino Transferase (AST) 1057 H 488 H 13-40 U/L Alanine Aminotransferase (ALT) 787 H 360 H 7-40 U/L Alkaline Phosphatase 115 88 46-116 U/L Troponin I High Sensitivity 14 3 L </=54 ng/L Total Protein 3.4 L 4.6 L 5.7-8.2 g/dL Albumin 2.0 L 2.6 L 3.2-4.8 g/dL White Blood Count 19.0 H 4.4-10.8 10^3/uL Red Blood Count 1.21 L 4.5-5.90 10^6/uL Hemoglobin 3.9 *L 13.5-17.5 g/dL Hematocrit 15.5 L 41.0-53.0 % Mean Corpuscular Volume 127.9 H 80.0-100.0 fL Mean Corpuscular Hemoglobin 32.4 H 28.0-32.0 pg Mean Corpuscular Hemoglobin Concent 25.3 L 32.0-36.0 g/dL Red Cell Distribution Width 15.7 H 11.8-14.3 % Platelet Count 315 140-450 10^3/uL Mean Platelet Volume 8.9 6.9-10.8 fL Neutrophils (%) (Auto) 37.0-80.0 % Lymphocytes (%) (Auto) 10.0-50.0 % Monocytes (%) (Auto) 0.0-12.0 % Basophils (%) (Auto) 0.0-2.0 % Neutrophils # (Auto) 1.6-8.6 10 ^3/uL Lymphocytes # (Auto) 0.4-5.4 10 ^3/uL Monocytes # (Auto) 0-1.3 10 ^3/uL Differential Total Cells Counted 100.0 100 Neutrophils % (Manual) 28 L 37.0-80.0 Band Neutrophils % (Manual) 2 Lymphocytes % (Manual) 67 H 10.0-50.0 Monocytes % (Manual) 2 0-12 Eosinophils % (Manual) 0 0-7 Basophils % (Manual) 0 0.0-2.0 Metamyelocytes % (manual) 0 Myelocytes % (Manual) 1 Promyelocytes % (Manual) 0 Blast Cells % (Manual) 0 Nucleated Red Blood Cells 1.0 % Reactive Lymphocytes 0 Platelet Estimate Adequate Macrocytosis Marked Prothrombin Time 12.6 H 9.3-11.8 sec Prothrombin Time INR 1.21 H 0.9-1.15 Activated Partial Thromboplast Time 109.0 *H 24.5-34.5 SEC Lactic Acid Level 22.8 *H 0.4-2.0 mmol/L Assessment 54 year old male w/ chronic pain took half bottle of naproxen for pain for the last few days developed severe GI bleeding and hypotension which lead to a cardiac event. Patient had prolonged cardiac arrest in the field Acute kidney injury due to hypovolemia Chronic kidney disease unspecified cardiac arrest GI bleeding respiratory failure anemia blood loss naproxen overdose for chronic pain shock hemorrhagic metabolic acidosis replace electrolytes shock on 3 pressors unstable IV bicarb drip, continue aggressive volume replacement blood fluids and albumin Gastroenterology at bedside made him DNR she advises HD should be withheld unless it will show benefit in overall correction prognosis critically ill, grim prognosis 40 mins Plan discussed with: Spouse CINDY RAMIREZ MD Feb 13, 2025 14:49
--- NOTE | 2025-02-13 15:01 | DVHNC2 ---
Procedure - Procedure- Left axillary arterial line catheter placement ultrasound guided Indication- Hemodynamic monitoring Procedure in detail Consent was obtained and timeout performed per protocol. The patient was placed in the supine position and the left axillary artery was localized using ultrasound SonoSite. ChloraPrep was used to clean the operative field, sterile drapes used to cover the area and local analgesia Lidocaine. The catheter was advanced over the wire with direct ultrasound guidance in the left axillary artery. The wire was removed, catheter flushed and attached to the transition device showing correct arterial waveform. Catheter was secured with 2 sutures and sterile dressing applied. No complications. FUNMILAYO KRISHNA MD Feb 13, 2025 15:01
[2025-02-13 19:56] LABS: Anion Gap 15 (5-15)
[2025-02-13] MEDS ORDERED: VASOPRESSIN 40 UNITS in D5W 5% 198 ML IV SCH (20:00)
[2025-02-13 20:01] LABS: BUN/Creatinine Ratio 16.9 (10.0-20.0)
[2025-02-13 20:02] LABS: Blood Urea Nitrogen 37 mg/dL (9-23); Carbon Dioxide 11 mmol/L (20-31); Chloride 120 mmol/L (98-107); Glucose 329 mg/dL (74-106); Potassium 4.6 mmol/L (3.5-5.1); Sodium 146 mmol/L (136-145)
[2025-02-13 20:04] LABS: Calcium 5.8 mg/dL (8.7-10.4)
--- NOTE | 2025-02-13 20:14 | DVHINCON2 ---
Allergies: Coded Allergies: Ciprofloxacin (Verified Allergy, Intermediate, 04/24/10) Vancomycin (Verified Allergy, Intermediate, 04/24/10) Uncoded Allergies: SULFA (Allergy, Unknown, 10/25/14) Home Meds Reported Medications Cephalexin Monohydrate (Cephalexin) 500 Mg Cap, 500 MG PO BID, #60 10/25/14 Current Medications Current Medications Medications (Trade) Dose Ordered Sig/Noah Route PRN Reason Start Time Stop Time Status Last Admin Midazolam HCl 50 ml @ 1 mls/hr Q24H IV 02/13/25 02:30 02/13/25 02:00 Norepinephrine Bitartrate 250 ml @ 3.75 mls/hr Q24H IV 02/13/25 02:30 02/13/25 18:58 Sodium Chloride 1,000 ml @ 120 mls/hr Q8H20M IV 02/13/25 02:15 02/13/25 18:25 Ondansetron HCl (Zofran) 4 mg Q4HP PRN IV NAUSEA / VOMITING 02/13/25 02:15 Nitroglycerin (Ntrostat Sublingual) 0.4 mg Q5MINP PRN SL FOR CHEST PAIN 02/13/25 02:15 Morphine Sulfate 2 mg Q30M PRN IV FOR CHEST PAIN 02/13/25 02:15 Diagnostic Test (Pha) (Accu-Chek Comfort Curve T) 1 strip IQ4HR 02/13/25 04:00 02/13/25 16:59 Insulin Human Regular (InsuLIN R) IQ4HR SC 02/13/25 04:00 02/13/25 17:01 Dextrose 50 ml UD PRN IV Blood Sugar LESS THAN 60 02/13/25 02:15 Pantoprazole Sodium (Protonix) 40 mg BID IV 02/13/25 10:00 02/13/25 10:51 DC 02/13/25 10:15 Phenylephrine HCl 250 ml @ 30 mls/hr Q8H20M IV 02/13/25 05:15 02/13/25 18:53 Vasopressin 20 units/Sodium Chloride 100 ml @ 9 mls/hr Q11H7M IV 02/13/25 05:15 02/13/25 20:03 DC 02/13/25 15:10 Piperacillin Sod/ Tazobactam Sod 100 ml @ 25 mls/hr Q8HR IV 02/13/25 06:00 02/13/25 14:09 Doxycycline Hyclate 100 ml @ 50 mls/hr Q12H IV 02/13/25 05:15 02/13/25 17:08 Albumin Human 50 ml @ 100 mls/hr Q8H IV 02/13/25 05:15 02/13/25 21:44 02/13/25 12:49 Sodium Chloride 1,000 ml @ 100 mls/hr Q10H IV 02/13/25 05:15 02/13/25 05:15 Epinephrine HCl 250 ml @ 7.5 mls/hr Q24H IV 02/13/25 07:15 02/13/25 14:59 Dopamine HCl/ Dextrose 250 ml @ 12.788 mls/ hr [id number] IV 02/13/25 09:30 02/13/25 19:22 Sodium Bicarbonate 150 ml/Dextrose 1,150 ml @ 100 mls/hr [id number] IV 02/13/25 10:45 02/13/25 10:51 DC Pantoprazole Sodium 50 ml @ 10 mls/hr Q5H IV 02/13/25 10:45 02/13/25 15:06 Octreotide Acetate 500 mcg/ Sodium Chloride 100 ml @ 10 mls/hr Q10H IV 02/13/25 10:45 02/13/25 12:02 Sodium Bicarbonate 150 ml/Dextrose 1,150 ml @ 150 mls/hr Q7H40M IV 02/13/25 10:45 02/13/25 12:02 Vasopressin 40 units/Dextrose 200 ml @ 60 mls/hr Q3H20M IV 02/13/25 20:00 02/13/25 20:04 DC Vasopressin 100 units/Dextrose 500 ml @ 60 mls/hr Q8H20M IV 02/13/25 20:15 Vital Signs Vital Signs Date Time Temp Pulse Resp B/P (MAP) Pulse Ox O2 Delivery O2 Flow Rate FiO2 02/13/25 19:22 90/60 02/13/25 19:00 97 30 02/13/25 18:32 98.0 98.0 02/13/25 18:00 100 Mechanical Ventilator+ 100 100 Labs/Diagnostic Data Labs Test 02/13/25 16:59 02/13/25 14:18 02/13/25 14:00 02/13/25 12:50 Range/Units POC Glucose 209 H 70-106 mg/dl Blood Gas Specimen Type Arterial Blood Gas Sample Site Arterial line Blood Gas Patient Temperature 37.0 Arterial Blood Date Drawn [id number] Arterial Blood pH 7.001 *L 7.350-7.450 Arterial Blood Partial Pressure CO2 39.9 35.0-48.0 mmHg Arterial Blood Partial Pressure O2 326.6 *H 83.0-108.0 mmHg Arterial Blood HCO3 9.6 L 21.0-28.0 mmol/L Cole Test N/a Blood Gas Total Hemoglobin < 4.90 *L 13.5-17.5 g/dL Blood Gas Set Respiration Rate 30.0 Blood Gas Modality Vent - ac Blood Gas Spontaneous Rate 30 FiO2 % 100.0 Blood Gas Tidal Volume 500.0 Blood Gas PEEP or CPAP 5.0 Blood Gas Comments Blood Gas Critical Value Read Back Yes Blood Gas Notified Whom Dr. caceres Blood Gas Notified Time [id number] Blood Gas Notified By xiomy Duke rt. Potassium Level 5.0 3.5-5.1 mmol/L Troponin I High Sensitivity 213 *H </=54 ng/L Test 02/13/25 10:34 02/13/25 06:53 02/13/25 06:20 02/13/25 05:44 Range/Units Hemoglobin 5.3 #*L 13.5-17.5 g/dL Hematocrit 17.7 #L 41.0-53.0 % Sodium Level 146 #H 136-145 mmol/L Chloride Level 120 #H 98-107 mmol/L Carbon Dioxide Level 11 L 20-31 mmol/L Anion Gap 15 5-15 Blood Urea Nitrogen 37 H 9-23 mg/dL Creatinine 2.19 H 0.700-1.30 mg/dL Glomerular Filtration Rate Calc 35 >90 mL/min BUN/Creatinine Ratio 16.9 10.0-20.0 Serum Glucose 329 H 74-106 mg/dL Calcium Level 5.8 *L 8.7-10.4 mg/dL Influenza Type A Antigen Negative Negative Influenza Type B Antigen Negative Negative White Blood Count 30.4 #*H 4.4-10.8 10^3/uL Red Blood Count 3.26 L 4.5-5.90 10^6/uL Mean Corpuscular Volume 92.5 # 80.0-100.0 fL Mean Corpuscular Hemoglobin 28.7 28.0-32.0 pg Mean Corpuscular Hemoglobin Concent 31.0 L 32.0-36.0 g/dL Red Cell Distribution Width 17.8 H 11.8-14.3 % Platelet Count 181 140-450 10^3/uL Mean Platelet Volume 7.4 6.9-10.8 fL Neutrophils (%) (Auto) 37.0-80.0 % Lymphocytes (%) (Auto) 10.0-50.0 % Monocytes (%) (Auto) 0.0-12.0 % Basophils (%) (Auto) 0.0-2.0 % Neutrophils # (Auto) 1.6-8.6 10 ^3/uL Lymphocytes # (Auto) 0.4-5.4 10 ^3/uL Monocytes # (Auto) 0-1.3 10 ^3/uL Differential Total Cells Counted 100.0 100 Neutrophils % (Manual) 64 37.0-80.0 Band Neutrophils % (Manual) 19 Lymphocytes % (Manual) 13 10.0-50.0 Monocytes % (Manual) 2 0-12 Eosinophils % (Manual) 1 0-7 Basophils % (Manual) 0 0.0-2.0 Metamyelocytes % (manual) 1 Myelocytes % (Manual) 0 Promyelocytes % (Manual) 0 Blast Cells % (Manual) 0 Reactive Lymphocytes 0 Platelet Estimate Adequate Hypochromasia (manual) Slight Poikilocytosis (manual) Slight Anisocytosis (manual) Slight [place] Cells Few D-Dimer, Quantitative > 35.20 H 0.0-0.49 mg/L FEU Lactic Acid Level 7.6 *H 0.4-2.0 mmol/L Phosphorus Level 10.8 H 2.4-5.1 mg/dL Magnesium Level 3.1 H 1.6-2.6 mg/dL Total Bilirubin 0.3 0.2-1.0 mg/dL Aspartate Amino Transferase (AST) 2278 H 13-40 U/L Alanine Aminotransferase (ALT) 1467 H 7-40 U/L Alkaline Phosphatase 468 H 46-116 U/L Ammonia 51 H 11-32 umol/L Total Protein 4.6 L 5.7-8.2 g/dL Albumin 2.9 L 3.2-4.8 g/dL SARS-CoV-2 Antigen (Rapid) Negative NEGATIVE Test 02/13/25 05:25 02/13/25 01:10 Range/Units Arterial Blood Oxygen Saturation 91.6 L 94.0-98.0 % Arterial Blood Base Excess -19.1 L -2.0-3.0 mmol/L Arterial Blood Oxyhemoglobin 91.1 L 94.0-98.0 % Arterial Blood Carboxyhemoglobin 0.4 L 0.5-1.5 % Arterial Blood Methemoglobin 0.2 0.0-1.5 % Nucleated Red Blood Cells 1.0 % Macrocytosis Marked Prothrombin Time 12.6 H 9.3-11.8 sec Prothrombin Time INR 1.21 H 0.9-1.15 Activated Partial Thromboplast Time 109.0 *H 24.5-34.5 SEC ANDREAS SABA MD Feb 13, 2025 20:14
[2025-02-13] MEDS: VASOPRESSIN 100 UNITS in D5W 5% 495 ML IV SCH (20:15)
[2025-02-13] MEDS: CALCIUM GLUC 1,000mg/50ml-NS 50 ML IV SCH (21:06)
--- NOTE | 2025-02-13 21:50 | DVHINCON2 ---
Date of service: Feb 13, 2025 Referring Physician Zeenat Reason for Consultation Cerebral edema History of Present Illness Mr. Valerio is a 54 years old gentleman with a history of heart disease, Gravis disease, autoimmune disorder, kidney disease, liver disease, he was admitted to the [facility] on 02/13/2025 with a chief complaint of cardiopulmonary arrest. At this time, the patient is on multiple pressor drips for unstable vitals, intubated, nonresponsive to the surroundings. The history is obtained from his children and chart review, talking to his nurse Apparently, his heard him screaming for help, when she came over, the patient was nonresponsive, in blood, EMS came over quite soon, and the size CPR and intubated patient, apparently ROSC achieved at 02/13/25 01:00, but he coded again for [address] brain scan shows diffuse brain edema ABG, 02/13/2025: Combined metabolic and respiratory acidosis WBC/HB/PLT/MCV, 02/13/2025: 30.4/9.4/181/95.5 PT/INR/PTT, 02/13/2025 0110: 12.6/1.21/109 D-dimer, 02/13/2025: 35.2 H/H, 02/13/2025: 9.3/30.4, 5.3/17.7 Na, 02/13/2025: 140, 146 Ca 02/12/2025: 5.8 BUN/CR, 02/13/2025: 37/2.19 Lactic acid, 02/13/2025: 22.8 TBI/AST/ALT/AP, 02/13/2025: 0.2/488/360/88, 0.08/2277/1467/468 Ammonia, 02/13/2025: 51 CT head, 02/13/2025: There is global loss of cortes-white matter differentiation and suggestion of mild diffuse cerebellar and cerebral edema. Findings may represent global hypoxic ischemic injury. Clinical correlation advised. 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 Family History He is adopted Social History He smokes, but no history of drug/alcohol abuse Allergies: Coded Allergies: Ciprofloxacin (Verified Allergy, Intermediate, 04/24/10) Vancomycin (Verified Allergy, Intermediate, 04/24/10) Uncoded Allergies: SULFA (Allergy, Unknown, 10/25/14) Home Meds Reported Medications Cephalexin Monohydrate (Cephalexin) 500 Mg Cap, 500 MG PO BID, #60 10/25/14 Current Medications Current Medications Medications (Trade) Dose Ordered Sig/Noah Route PRN Reason Start Time Stop Time Status Last Admin Midazolam HCl 50 ml @ 1 mls/hr Q24H IV 02/13/25 02:30 02/13/25 02:00 Norepinephrine Bitartrate 250 ml @ 3.75 mls/hr Q24H IV 02/13/25 02:30 02/13/25 18:58 Sodium Chloride 1,000 ml @ 120 mls/hr Q8H20M IV 02/13/25 02:15 02/13/25 18:25 Ondansetron HCl (Zofran) 4 mg Q4HP PRN IV NAUSEA / VOMITING 02/13/25 02:15 Nitroglycerin (Ntrostat Sublingual) 0.4 mg Q5MINP PRN SL FOR CHEST PAIN 02/13/25 02:15 Morphine Sulfate 2 mg Q30M PRN IV FOR CHEST PAIN 02/13/25 02:15 Diagnostic Test (Pha) (Accu-Chek Comfort Curve T) 1 strip IQ4HR 02/13/25 04:00 02/13/25 20:00 Insulin Human Regular (InsuLIN R) IQ4HR SC 02/13/25 04:00 02/13/25 20:25 Dextrose 50 ml UD PRN IV Blood Sugar LESS THAN 60 02/13/25 02:15 Pantoprazole Sodium (Protonix) 40 mg BID IV 02/13/25 10:00 02/13/25 10:51 DC 02/13/25 10:15 Phenylephrine HCl 250 ml @ 30 mls/hr Q8H20M IV 02/13/25 05:15 02/13/25 20:25 Vasopressin 20 units/Sodium Chloride 100 ml @ 9 mls/hr Q11H7M IV 02/13/25 05:15 02/13/25 20:03 DC 02/13/25 15:10 Piperacillin Sod/ Tazobactam Sod 100 ml @ 25 mls/hr Q8HR IV 02/13/25 06:00 02/13/25 14:09 Doxycycline Hyclate 100 ml @ 50 mls/hr Q12H IV 02/13/25 05:15 02/13/25 17:08 Albumin Human 50 ml @ 100 mls/hr Q8H IV 02/13/25 05:15 02/13/25 21:44 02/13/25 12:49 Sodium Chloride 1,000 ml @ 100 mls/hr Q10H IV 02/13/25 05:15 02/13/25 05:15 Epinephrine HCl 250 ml @ 7.5 mls/hr Q24H IV 02/13/25 07:15 02/13/25 14:59 Dopamine HCl/ Dextrose 250 ml @ 12.788 mls/ hr [id number] IV 02/13/25 09:30 02/13/25 19:22 Sodium Bicarbonate 150 ml/Dextrose 1,150 ml @ 100 mls/hr [id number] IV 02/13/25 10:45 02/13/25 10:51 DC Pantoprazole Sodium 50 ml @ 10 mls/hr Q5H IV 02/13/25 10:45 02/13/25 20:51 Octreotide Acetate 500 mcg/ Sodium Chloride 100 ml @ 10 mls/hr Q10H IV 02/13/25 10:45 02/13/25 20:51 Sodium Bicarbonate 150 ml/Dextrose 1,150 ml @ 150 mls/hr Q7H40M IV 02/13/25 10:45 02/13/25 20:30 Vasopressin 40 units/Dextrose 200 ml @ 60 mls/hr Q3H20M IV 02/13/25 20:00 02/13/25 20:04 DC Vasopressin 100 units/Dextrose 500 ml @ 60 mls/hr Q8H20M IV 02/13/25 20:15 02/13/25 20:15 Calcium Gluconate/ Sodium Chloride 50 ml @ 100 mls/hr Q30M IV 02/13/25 21:00 02/13/25 21:59 02/13/25 21:06 Review of Systems As above, the other systems negative Vital Signs Vital Signs Date Time Temp Pulse Resp B/P (MAP) Pulse Ox O2 Delivery O2 Flow Rate FiO2 02/13/25 21:00 99.5 106 30 98/79 (85) 99.5 02/13/25 20:00 47 Mechanical Ventilator+ 40 40 Physical Exam The patient is well-nourished and well-developed with no distress. The patient is intubated HEENT: Normocephalic, neck supple, no carotid bruits Lungs: Clear to auscultation Cardiovascular: Regular rate and region, S1, S2, no murmurs Abdomen: Soft, nontender, normal bowel sounds MENTAL STATUS: Not responsive to the surroundings, CRANIAL NERVES: Pupils are equal, round, dilated and fixed. There are no corneal reflexes and doll's eyes phenomenon. No signs of facial weakness. There are no gagging or coughing reflexes SENSATION: No responses to pain stimuli. MOTOR: Normal tone in the upper and lower extremity. Normal muscle bulk. No fasciculations. No spontaneous movement. REFLEXES: Deep tendon reflexes are symmetrical. No pathological reflexes. CEREBELLAR/COORDINATION: Deferred GAIT/STATION: deferred. Labs/Diagnostic Data Labs Test 02/13/25 20:17 02/13/25 14:18 02/13/25 12:50 02/13/25 10:34 Range/Units POC Glucose 185 H 70-106 mg/dl Blood Gas Specimen Type Arterial Blood Gas Sample Site Arterial line Blood Gas Patient Temperature 37.0 Arterial Blood Date Drawn [id number] Arterial Blood pH 7.001 *L 7.350-7.450 Arterial Blood Partial Pressure CO2 39.9 35.0-48.0 mmHg Arterial Blood Partial Pressure O2 326.6 *H 83.0-108.0 mmHg Arterial Blood HCO3 9.6 L 21.0-28.0 mmol/L Cole Test N/a Blood Gas Total Hemoglobin < 4.90 *L 13.5-17.5 g/dL Blood Gas Set Respiration Rate 30.0 Blood Gas Modality Vent - ac Blood Gas Spontaneous Rate 30 FiO2 % 100.0 Blood Gas Tidal Volume 500.0 Blood Gas PEEP or CPAP 5.0 Blood Gas Comments Blood Gas Critical Value Read Back Yes Blood Gas Notified Whom Dr. caceres Blood Gas Notified Time [id number] Blood Gas Notified By xiomy [facility] rt. Potassium Level 5.0 3.5-5.1 mmol/L Troponin I High Sensitivity 213 *H </=54 ng/L Hemoglobin 5.3 #*L 13.5-17.5 g/dL Hematocrit 17.7 #L 41.0-53.0 % Sodium Level 146 #H 136-145 mmol/L Chloride Level 120 #H 98-107 mmol/L Carbon Dioxide Level 11 L 20-31 mmol/L Anion Gap 15 5-15 Blood Urea Nitrogen 37 H 9-23 mg/dL Creatinine 2.19 H 0.700-1.30 mg/dL Glomerular Filtration Rate Calc 35 >90 mL/min BUN/Creatinine Ratio 16.9 10.0-20.0 Serum Glucose 329 H 74-106 mg/dL Calcium Level 5.8 *L 8.7-10.4 mg/dL Test 02/13/25 06:53 02/13/25 06:20 02/13/25 05:44 02/13/25 05:25 Range/Units Influenza Type A Antigen Negative Negative Influenza Type B Antigen Negative Negative White Blood Count 30.4 #*H 4.4-10.8 10^3/uL Red Blood Count 3.26 L 4.5-5.90 10^6/uL Mean Corpuscular Volume 92.5 # 80.0-100.0 fL Mean Corpuscular Hemoglobin 28.7 28.0-32.0 pg Mean Corpuscular Hemoglobin Concent 31.0 L 32.0-36.0 g/dL Red Cell Distribution Width 17.8 H 11.8-14.3 % Platelet Count 181 140-450 10^3/uL Mean Platelet Volume 7.4 6.9-10.8 fL Neutrophils (%) (Auto) 37.0-80.0 % Lymphocytes (%) (Auto) 10.0-50.0 % Monocytes (%) (Auto) 0.0-12.0 % Basophils (%) (Auto) 0.0-2.0 % Neutrophils # (Auto) 1.6-8.6 10 ^3/uL Lymphocytes # (Auto) 0.4-5.4 10 ^3/uL Monocytes # (Auto) 0-1.3 10 ^3/uL Differential Total Cells Counted 100.0 100 Neutrophils % (Manual) 64 37.0-80.0 Band Neutrophils % (Manual) 19 Lymphocytes % (Manual) 13 10.0-50.0 Monocytes % (Manual) 2 0-12 Eosinophils % (Manual) 1 0-7 Basophils % (Manual) 0 0.0-2.0 Metamyelocytes % (manual) 1 Myelocytes % (Manual) 0 Promyelocytes % (Manual) 0 Blast Cells % (Manual) 0 Reactive Lymphocytes 0 Platelet Estimate Adequate Hypochromasia (manual) Slight Poikilocytosis (manual) Slight Anisocytosis (manual) Slight [place] Cells Few D-Dimer, Quantitative > 35.20 H 0.0-0.49 mg/L FEU Lactic Acid Level 7.6 *H 0.4-2.0 mmol/L Phosphorus Level 10.8 H 2.4-5.1 mg/dL Magnesium Level 3.1 H 1.6-2.6 mg/dL Total Bilirubin 0.3 0.2-1.0 mg/dL Aspartate Amino Transferase (AST) 2278 H 13-40 U/L Alanine Aminotransferase (ALT) 1467 H 7-40 U/L Alkaline Phosphatase 468 H 46-116 U/L Ammonia 51 H 11-32 umol/L Total Protein 4.6 L 5.7-8.2 g/dL Albumin 2.9 L 3.2-4.8 g/dL SARS-CoV-2 Antigen (Rapid) Negative NEGATIVE Arterial Blood Oxygen Saturation 91.6 L 94.0-98.0 % Arterial Blood Base Excess -19.1 L -2.0-3.0 mmol/L Arterial Blood Oxyhemoglobin 91.1 L 94.0-98.0 % Arterial Blood Carboxyhemoglobin 0.4 L 0.5-1.5 % Arterial Blood Methemoglobin 0.2 0.0-1.5 % Test 02/13/25 01:10 Range/Units Nucleated Red Blood Cells 1.0 % Macrocytosis Marked Prothrombin Time 12.6 H 9.3-11.8 sec Prothrombin Time INR 1.21 H 0.9-1.15 Activated Partial Thromboplast Time 109.0 *H 24.5-34.5 SEC Assessment Coma Hypoxic encephalopathy Metabolic encephalopathy Cardiopulmonary arrest Status post CPR Acute respiratory failure Metabolic acidosis Respiratory acidosis Severe anemia GI bleeding Leukocytosis/sepsis Plan/Recommendation Monitoring Supportive treatment ICU care Stabilize vitals/pressor drip Respiratory support/vent management Oxygen RBC transfusion IV antibiotics Half-Way on case Pulmonology on case Nephrology on case GI on case Infectious disease on case More recommendation per clinical course The patient is likely to have poor prognosis for meaningful/overall recovery I have discussed with the family about his poor prognosis for meaningful/overall recovery Critical care time spent is 45 minutes This medical document was created using an electronic medical record system with [employer] system. Although this document has been carefully reviewed, there may still be some phonetic and typographical errors. These areas are purely typographical due to imperfections of the software programs, and do not reflect any compromise in the patient's medical care. Plan discussed with: Daughter, Son, Other MAKSIM DAVEY MD Feb 13, 2025 21:50
[2025-02-13 21:53] LABS: Hematocrit 19.6 % (41.0-53.0)
[2025-02-13 21:58] LABS: Sodium 144 mmol/L (136-145)
[2025-02-13 21:59] LABS: Anion Gap 17.00001 (5-15); Hemoglobin 6.0 g/dL (13.5-17.5)
[2025-02-13 22:04] LABS: BUN/Creatinine Ratio 12.7 (10.0-20.0)
[2025-02-13 22:08] LABS: Blood Urea Nitrogen 36 mg/dL (9-23); Chloride 117 mmol/L (98-107); Glucose 214 mg/dL (74-106)
[2025-02-13 22:12] LABS: Calcium 5.4 mg/dL (8.7-10.4); Carbon Dioxide < 10 mmol/L (20-31); Potassium 7.2 mmol/L (3.5-5.1)
[2025-02-14] VITALS (8 sets, daily range): BP systolic 39–119; BP diastolic 27–97; PULSE 29–102; RESP 30–33; TEMP 97–97.9; O2SAT 0–90
[2025-02-14] MEDS ORDERED: EPINEPHrine HCL 1 MG/10 ML SYRG IV ONE (01:19)
--- NOTE | 2025-02-14 06:19 | DVHSR ---
APPROVED REPORT EXAM: Two-dimensional and M-mode echocardiogram with Doppler and color Doppler. Blood Pressure: 84/57 mmHg INDICATION s/p arrest RISK FACTORS Height: 5'10", Weight: 150 DIMENSIONS LVDd4.0 (3.8-5.7cm)LA (2D) (1.9-4.0cm)Aortic Root (2.0-3.7cm) LVDs2.9 (2.5-4.0cm)LA (MM) (1.9-4.0cm)Aortic Cusp Exc (1.5-2.0cm) EF (%) 55.0 (55-70%)Rt. Atrium (1.9-4.0cm)Asc. Aorta cm Mitral Valve MitralMitral Stenosis E/A ratio0.02D MVAcm2 Other Information Quality : Technically LimitedRhythm : Technically limited study due to body habitus, patient position and on vent. Conclusion Technically limited study secondary to poor acoustic windows. Left ventricle: Left ventricle was normal-sized with normal systolic function. LVEF was 55-60%. Th ere was no gross wall motion abnormality. Right ventricle was normal-sized with normal systolic function. Both atria were normal-sized. Aortic valve was trileaflet. There was trace mitral/tricuspid regurgitation. Pulmonary valve was not well visualized. IVC was normal-sized with normal respiratory variation. There was no pericardial effusion.
[2025-02-14 16:47] LABS: Hepatitis B Surface Antigen Negative (Negative)
[2025-02-14 17:08] LABS: Hepatitis C Antibody Negative (Negative)
--- NOTE | 2025-02-15 11:13 | ECG ---
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
--- NOTE | 2025-02-17 21:57 | DVHDS2 ---
Discharge Summary Date of Admission Feb 13, 2025 at 02:15 Date of Discharge: Feb 13, 2025 Labs/Diagnostic Data: Laboratory Results Test 02/14/25 00:10 02/13/25 21:32 02/13/25 14:18 02/13/25 06:53 POC Glucose 99 mg/dl (70-106) Hemoglobin 6.0 g/dL (13.5-17.5) Hematocrit 19.6 % (41.0-53.0) Sodium Level 144 mmol/L (136-145) Potassium Level 7.2 mmol/L (3.5-5.1) Chloride Level 117 mmol/L (98-107) Carbon Dioxide Level < 10 mmol/L (20-31) Anion Gap 17.01966 (5-15) Blood Urea Nitrogen 36 mg/dL (9-23) Creatinine 2.83 mg/dL (0.700-1.30) Glomerular Filtration Rate Calc 26 mL/min (>90) BUN/Creatinine Ratio 12.7 (10.0-20.0) Serum Glucose 214 mg/dL (74-106) Calcium Level 5.4 mg/dL (8.7-10.4) Ammonia 206 umol/L (11-32) Troponin I High Sensitivity 300 ng/L (</=54) Plasma/Serum Blood Alcohol 5.5 mg/dL (<10) Blood Gas Specimen Type Arterial Blood Gas Sample Site Arterial line Blood Gas Patient Temperature 37.0 Arterial Blood Date Drawn [id number] Arterial Blood pH 7.001 (7.350-7.450) Arterial Blood Partial Pressure CO2 39.9 mmHg (35.0-48.0) Arterial Blood Partial Pressure O2 326.6 mmHg (83.0-108.0) Arterial Blood HCO3 9.6 mmol/L (21.0-28.0) Cole Test N/a Blood Gas Total Hemoglobin < 4.90 g/dL (13.5-17.5) Blood Gas Set Respiration Rate 30.0 Blood Gas Modality Vent - ac Blood Gas Spontaneous Rate 30 FiO2 % 100.0 Blood Gas Tidal Volume 500.0 Blood Gas PEEP or CPAP 5.0 Blood Gas Comments Blood Gas Critical Value Read Back Yes Blood Gas Notified Whom Dr. caceres Blood Gas Notified Time [id number] Blood Gas Notified By xiomy [facility] rt. Influenza Type A Antigen Negative (Negative) Influenza Type B Antigen Negative (Negative) Test 02/13/25 06:20 02/13/25 05:44 02/13/25 05:25 02/13/25 01:10 White Blood Count 30.4 10^3/uL (4.4-10.8) Red Blood Count 3.26 10^6/uL (4.5-5.90) Mean Corpuscular Volume 92.5 fL (80.0-100.0) Mean Corpuscular Hemoglobin 28.7 pg (28.0-32.0) Mean Corpuscular Hemoglobin Concent 31.0 g/dL (32.0-36.0) Red Cell Distribution Width 17.8 % (11.8-14.3) Platelet Count 181 10^3/uL (140-450) Mean Platelet Volume 7.4 fL (6.9-10.8) Neutrophils (%) (Auto) % (37.0-80.0) Lymphocytes (%) (Auto) % (10.0-50.0) Monocytes (%) (Auto) % (0.0-12.0) Basophils (%) (Auto) % (0.0-2.0) Neutrophils # (Auto) 10 ^3/uL (1.6-8.6) Lymphocytes # (Auto) 10 ^3/uL (0.4-5.4) Monocytes # (Auto) 10 ^3/uL (0-1.3) Differential Total Cells Counted 100.0 (100) Neutrophils % (Manual) 64 (37.0-80.0) Band Neutrophils % (Manual) 19 Lymphocytes % (Manual) 13 (10.0-50.0) Monocytes % (Manual) 2 (0-12) Eosinophils % (Manual) 1 (0-7) Basophils % (Manual) 0 (0.0-2.0) Metamyelocytes % (manual) 1 Myelocytes % (Manual) 0 Promyelocytes % (Manual) 0 Blast Cells % (Manual) 0 Reactive Lymphocytes 0 Platelet Estimate Adequate Hypochromasia (manual) Slight Poikilocytosis (manual) Slight Anisocytosis (manual) Slight [place]i Cells Few D-Dimer, Quantitative > 35.20 mg/L FEU (0.0-0.49) Lactic Acid Level 7.6 mmol/L (0.4-2.0) Phosphorus Level 10.8 mg/dL (2.4-5.1) Magnesium Level 3.1 mg/dL (1.6-2.6) Total Bilirubin 0.3 mg/dL (0.2-1.0) Aspartate Amino Transferase (AST) 2278 U/L (13-40) Alanine Aminotransferase (ALT) 1467 U/L (7-40) Alkaline Phosphatase 468 U/L (46-116) Total Protein 4.6 g/dL (5.7-8.2) Albumin 2.9 g/dL (3.2-4.8) Hepatitis A IgM Antibody Negative Hepatitis B Surface Antigen Negative (Negative) Hepatitis B Core IgM Antibody Negative (Negative) Hepatitis C Antibody Negative (Negative) SARS-CoV-2 Antigen (Rapid) Negative (NEGATIVE) Arterial Blood Oxygen Saturation 91.6 % (94.0-98.0) Arterial Blood Base Excess -19.1 mmol/L (-2.0-3.0) Arterial Blood Oxyhemoglobin 91.1 % (94.0-98.0) Arterial Blood Carboxyhemoglobin 0.4 % (0.5-1.5) Arterial Blood Methemoglobin 0.2 % (0.0-1.5) Nucleated Red Blood Cells 1.0 % Macrocytosis Marked Prothrombin Time 12.6 sec (9.3-11.8) Prothrombin Time INR 1.21 (0.9-1.15) Activated Partial Thromboplast Time 109.0 SEC (24.5-34.5) Other Laboratory Tests 02/13/25 21:32 02/13/25 06:20 Discharge Instruct/Medications Scheduled Cephalexin Monohydrate (Cephalexin), 500 MG PO BID, (Reported) Discharge Statement: "Patient was advised to return to the ER or call 911 if any headaches, dizziness, shortness of breath, chest pain, abdominal pain, bleeding, fevers, or worsening of medical condition. Patient was counseled about treatment plan, medications, possible side effects, patientverbalized understanding. All questions were answered to the best of my ability. This discharge took greater then 30 minutes in planning, reviewing documentation, counseling the patient, and discussing with other team members." ASSESSMENT ASSESSMENT Assessment VALE DONOVAN NP Feb 17, 2025 21:57
== END 2025-02-14 01:20 | DRG 871 ==
LOC: EDBD 01:00 → ER 01:00 → OVERFLOW 02:15 → ICU WEST 02:27
PROVIDERS: ADMIT Nurse Practitioner; ATTEND Nurse Practitioner
PROC: 30233K1 Transfusion of Nonautologous Frozen Plasma into Peripheral Vein, Percutaneous Approach (ICD-10-PCS; principal; 2025-02-13)
PROC: 30233N1 Transfusion of Nonautologous Red Blood Cells into Peripheral Vein, Percutaneous Approach (ICD-10-PCS; 2025-02-13)
PROC: 5A12012 Performance of Cardiac Output, Single, Manual (ICD-10-PCS; 2025-02-13)
PROC: 03HY32Z Insertion of Monitoring Device into Upper Artery, Percutaneous Approach (ICD-10-PCS; 2025-02-13)
PROC: 5A1935Z Respiratory Ventilation, Less than 24 Consecutive Hours (ICD-10-PCS; 2025-02-13)
PROC: 0BH17EZ Insertion of Endotracheal Airway into Trachea, Via Natural or Artificial Opening (ICD-10-PCS; 2025-02-13)
PROC: 06HY33Z Insertion of Infusion Device into Lower Vein, Percutaneous Approach (ICD-10-PCS; 2025-02-13)
DX: A41.9 Sepsis, unspecified organism (principal); G93.41 Metabolic encephalopathy; K72.00 Acute and subacute hepatic failure without coma; G93.6 Cerebral edema; N17.0 Acute kidney failure with tubular necrosis; R65.21 Severe sepsis with septic shock; J96.01 Acute respiratory failure with hypoxia; G93.1 Anoxic brain damage, not elsewhere classified; K92.2 Gastrointestinal hemorrhage, unspecified; J81.1 Chronic pulmonary edema; E87.4 Mixed disorder of acid-base balance; D68.9 Coagulation defect, unspecified; I46.9 Cardiac arrest, cause unspecified; R57.8 Other shock; E88.09 Other disorders of plasma-protein metabolism, not elsewhere classified; E87.5 Hyperkalemia; D50.0 Iron deficiency anemia secondary to blood loss (chronic); N18.9 Chronic kidney disease, unspecified; J44.9 Chronic obstructive pulmonary disease, unspecified; E86.1 Hypovolemia; G62.9 Polyneuropathy, unspecified; G89.29 Other chronic pain; F17.200 Nicotine dependence, unspecified, uncomplicated; E78.5 Hyperlipidemia, unspecified; T39.311A Poisoning by propionic acid derivatives, accidental (unintentional), initial encounter; Z88.2 Allergy status to sulfonamides; Z88.1 Allergy status to other antibiotic agents; Z87.01 Personal history of pneumonia (recurrent); Y92.89 Other specified places as the place of occurrence of the external cause
CPT/HCPCS: 31500; 36415; 36556; 36600; 36620; 70450; 71045; 74176; 80048; 80053; 80074; 80320; 82140; 82805; 82962; 83605; 83735; 84100; 84132; 84484; 85007; 85014; 85018; 85027; 85379; 85610; 85730; 86850; 86900; 86901; 86920; 87040; 87070; 87081; 87205; 87426; 87804; 92950; 93005; 93306; 94002; 94003; 96365; 96375; G0378; J0169; J1815; J2470; J2543; J3490; J7060; P9047